=== PATIENT | female | born 1940 | race Caucasian/White ===

== ENCOUNTER 2020-02-21 10:17 | Outpatient (REF) | payer MEDICARE, OTHER, SELFPAY ==
--- NOTE | 2020-02-21 10:22 | US_ITS ---
EXAMINATION: US VENOUS ULTRASOUND WITH DOPPLER LOWER EXTREMITY, RIGHT CLINICAL INFORMATION: M79.89 - Other specified soft tissue disorders. Right lower extremity pain. Assess for occult DVT. COMPARISON: None TECHNIQUE: Ultrasound of the deep veins is performed from the hip to the calf with compression sonography and color and pulse Doppler assessment. Spectral analysis with color-flow imaging is performed. FINDINGS: There is normal venous compression and respiratory variation and augmented flow. The visualized common femoral vein, superficial femoral vein, profunda femoral vein, popliteal vein, and the trifurcation region shows no evidence of deep venous thrombosis. There is a popliteal fossa cyst measuring 1.0 x 2.5 cm axial dimension and extending for 5 cm in length. US/US venous duplex LE RT IMPRESSION: 1. No DVT demonstrated in the right lower extremity. 2. Popliteal fossa cyst 1.0 x 2.5 x 5.0 cm.
== END 2020-02-21 10:18 | disposition home or self-care (01) ==
LOC: HO.HMGCX 10:17
PROVIDERS: PCP Internal Medicine; Visit Provider Hospitalist
DX: M79.89 Other specified soft tissue disorders (principal); M71.21 Synovial cyst of popliteal space [Baker], right knee
CPT/HCPCS: 93971

== ENCOUNTER 2020-03-02 10:19 | Outpatient (REF) | payer MEDICARE, SELFPAY ==
[2020-03-02 15:29] LABS: Alanine Aminotransferase 9 U/L (0-31); Aspartate Amino Transferase 15 U/L (5-31); Cholesterol 208 mg/dL; HDL Cholesterol 48 mg/dL; LDL Cholesterol Calculated 131 mg/dl; Triglycerides 145 mg/dL
== END 2020-03-02 10:20 | disposition home or self-care (01) ==
LOC: HO.HMGCLDS 10:19
PROVIDERS: PCP Internal Medicine; Visit Provider Internal Medicine
DX: E78.5 Hyperlipidemia, unspecified (principal)
CPT/HCPCS: 80061; 84450; 84460

== ENCOUNTER → 2020-03-30 08:32 | Outpatient (BNVA) | payer MEDICARE, SELFPAY | PROVIDERS: PCP Internal Medicine; Visit Provider Physician Assistant | DX: Z76.89 Persons encountering health services in other specified circumstances (principal) | CPT/HCPCS: Q3014 ==

== ENCOUNTER 2020-05-14 10:53 | Day surgery (SDC) | payer MEDICARE, OTHER, SELFPAY ==
[2020-05-08 13:18] VITALS: BMI 25.1
--- NOTE | 2020-05-13 10:03 | P.CONAN_ITS ---
Documented by User: Branid Gerri 05/13/20 10:17 HPI - Anesthesia Eval Consult details Narrative: 80yo F for Upper Endoscopy PMFSH Active Problems Active Problems: All Active Problems (Updated 05/08/20 @ 13:19 by Nessa Chu) Acid reflux (Acute) Menopause (Acute) Tubular adenoma of colon (Acute) Depression (Acute) Osteoarthritis, knee (Acute) Reflux esophagitis (Acute) Zaldivar's esophagus (Acute) Synovial cyst of popliteal space [Machado], right knee (Acute) Dyslipidemia (Acute) Past Medical History Medical History Acid reflux Zaldivar's esophagus COVID-19 vaccine administered Depression Dyslipidemia Menopause Osteoarthritis, knee Reflux esophagitis Synovial cyst of popliteal space [Machado], right knee Tubular adenoma of colon Family History Family History Father Colon cancer Sister Colon cancer Surgical History Surgical History H/O exploratory laparotomy History of esophagogastroduodenoscopy (EGD) Hx of blepharoplasty Hx of colonoscopy Hx of varicose vein ligation Social History Social History Are you a primary health care administrator to a significant other at home: No Do you presently have visiting nurse or other home services: No Alcohol intake: current Alcohol intake frequency: a few times a month Smoking Status: Former smoker Tobacco Type: Cigarette Smoked in Last 30 Days: No Smoking Quit Date: 1955 Use of substances other than those prescribed or required for medical reasons: No Have you been hit, kicked, punched, or otherwise hurt by someone within the past year? If so, by whom?: No Advance Directives Information Provided: No Recently lost weight without trying: No Current occupational status: retired Meds Allergies Allergy/AdvReac Type Severity Reaction Status Date / Time No Known Allergies Allergy Verified 05/08/20 13:22 [No Known Allergies*] Home Medications Medication Instructions Recorded Confirmed Last Taken Type aspirin 81 mg tablet,delayed 81 mg PO DAILY 03/05/20 05/14/20 05/13/20 History release atorvastatin 10 mg tablet 10 mg PO DAILY 03/05/20 05/08/20 Unknown History cholecalciferol (vitamin D3) 25 25 mcg PO DAILY 03/05/20 05/08/20 Unknown History mcg (1,000 unit) capsule diclofenac sodium 1 % topical gel 4 g TOPICAL BID 03/05/20 05/08/20 Unknown History flu vacc (65yr ml IM 03/05/20 Unknown History up)-MF59C(PF) 60 mcg(15 mcgx4)/0.5 mL IM syringe lactobacillus combination no.9 4 4,000 mmu cells PO 3XW 03/05/20 05/08/20 Unknown History billion cell capsule pantoprazole 40 mg tablet,delayed 40 mg PO DAILY 03/05/20 05/08/20 Unknown History release pneumococcal 23-glenn ps vaccine 25 ml IM 03/05/20 Unknown History mcg/0.5 mL injection syringe sertraline 100 mg tablet 100 mg PO QAM 03/05/20 03/30/20 Unknown History sertraline 50 mg PO DAILY 05/08/20 05/08/20 Unknown History Exam Exam Date and Time: May 13, 2020 1003 Height,Weight and Vital Signs: Height 5 ft 6.5 in Weight 71.668 kg Assessment and Plan Assessment Anesthesia Assessment: Chart Reviewed Documented by User: Greta Gimenez 05/14/20 11:49 [facility] Past Medical History Medical History Acid reflux Zaldivar's esophagus COVID-19 vaccine administered Depression Dyslipidemia Menopause Osteoarthritis, knee Reflux esophagitis Synovial cyst of popliteal space [Machado], right knee Tubular adenoma of colon Family History Family History Father Colon cancer Sister Colon cancer Surgical History Surgical History H/O exploratory laparotomy History of esophagogastroduodenoscopy (EGD) Hx of blepharoplasty Hx of colonoscopy Hx of varicose vein ligation Social History Social History Are you a primary health care administrator to a significant other at home: No Do you presently have visiting nurse or other home services: No Alcohol intake: current Alcohol intake frequency: a few times a month Smoking Status: Former smoker Tobacco Type: Cigarette Smoked in Last 30 Days: No Smoking Quit Date: 1955 Use of substances other than those prescribed or required for medical reasons: No Have you been hit, kicked, punched, or otherwise hurt by someone within the past year? If so, by whom?: No Advance Directives Information Provided: No Recently lost weight without trying: No Current occupational status: retired Meds Allergies Allergy/AdvReac Type Severity Reaction Status Date / Time No Known Allergies Allergy Verified 05/08/20 13:22 [No Known Allergies*] Home Medications Medication Instructions Recorded Confirmed Last Taken Type aspirin 81 mg tablet,delayed 81 mg PO DAILY 03/05/20 05/14/20 05/13/20 History release atorvastatin 10 mg tablet 10 mg PO DAILY 03/05/20 05/08/20 Unknown History cholecalciferol (vitamin D3) 25 25 mcg PO DAILY 03/05/20 05/08/20 Unknown History mcg (1,000 unit) capsule diclofenac sodium 1 % topical gel 4 g TOPICAL BID 03/05/20 05/08/20 Unknown History flu vacc 2019-(65yr ml IM 03/05/20 Unknown History up)-MF59C(PF) 60 mcg(15 mcgx4)/0.5 mL IM syringe lactobacillus combination no.9 4 4,000 mmu cells PO 3XW 03/05/20 05/08/20 Unknown History billion cell capsule pantoprazole 40 mg tablet,delayed 40 mg PO DAILY 03/05/20 05/08/20 Unknown History release pneumococcal 23-glenn ps vaccine 25 ml IM 03/05/20 Unknown History mcg/0.5 mL injection syringe sertraline 100 mg tablet 100 mg PO QAM 03/05/20 03/30/20 Unknown History sertraline 50 mg PO DAILY 05/08/20 05/08/20 Unknown History Exam Airway Mallampati Class: II TM Dist: >3cm Neck ROM: Full Heart: RRR Lungs: CTA Assessment and Plan Assessment Anesthesia Assessment: Anesthesia Plan Discussed and Chart Reviewed Final Anesthetic Review NPO: Yes ASA Class: II Final Preanesthetic Review: Meds/Allgs Chart Reviewed, Consent Obtained/Reviewed and Anes Risks/Benef Reviewed Patient Risk: Low Procedure Risk: Intermediate Anesthetic Plan Anesthetic Plan: MAC: Disposition: Standard PACU
[2020-05-14 11:19] VITALS: BP 143/66; PULSE 74; RESP 16; TEMP 36.7; O2SAT 96
[2020-05-14] MEDS: Lactated Ringers 1,000 ML 100 ML IVCONT (11:26)
--- NOTE | 2020-05-14 11:26 | MHC.SHP ---
Pre-Procedural Eval Section B Chief Complaint: barretts,reflux Relevant Family History (Specify if Yes): No Relevant Social History: None Present Medications: see Short Stay Collaborative assessment Medical History: Significant History (Acid reflux Zaldivar's esophagus COVID-19 vaccine administered Depression Dyslipidemia Menopause Osteoarthritis, knee Reflux esophagitis Synovial cyst of popliteal space [Machado], right knee Tubular adenoma of colon) History of Previous Operations: Relevant previous surgery/procedure and date(s) (H/O exploratory laparotomy History of esophagogastroduodenoscopy (EGD) Hx of blepharoplasty Hx of colonoscopy Hx of varicose vein ligation) Allergies: Allergies Allergy/AdvReac Type Severity Reaction Status Date / Time No Known Allergies Allergy Verified 05/08/20 13:22 [No Known Allergies*] Review of Systems Sugical H&P ROS: Negative: Constitution, Cardiovascular, Respiratory, Neurological, Psychiatric, Hem-Onc, Allergic/Immunologic, Gastrointestinal, Genitourinary, Musculoskeletal, Integumentary, Endocrine and Eyes/Ears/Nose/Throat Exam Surgical H&P Exam: Normal: HEENT, Normal: Heart, Normal: Lungs, Normal: Extremities, Normal: Abdomen, Normal: Skin and Normal: Neurological Plan Diagnosis/Plan: Unchanged I have reviewed the history and physical and performed a pertinent physical examination on my patient. No changes have occurred unless specified.
--- NOTE | 2020-05-14 11:56 | PM.OP ---
Brief Operative Note Date of Service: 05/14/20 Pre-op diagnosis: hx of barretts Post-op diagnosis: same Procedure: see op note Surgeon: Brook Weldon MD Anesthesia: MAC Estimated blood loss (mL): 0 Condition: stable Disposition: PACU
--- NOTE | 2020-05-14 11:57 | W.PM.OPN ---
Operative Note Operative Note Date of Service: 05/14/20 Narrative: Procedure Description: EGD FLEXIBLE TRANSORAL UPPER GASTROINTESTINAL ENDOSCOPY UPPER ENDOSCOPY Consent: Indications for the procedure and potential complications of bleeding, perforation, reaction to medications and missed diagnosis were discussed with the patient and informed consent was obtained. Instrument: Olympus GIF H 190 J mid size upper endoscope Monitoring: Vital signs and clinical assessment, continuous EKG monitoring, Pulse oximetry, Carbon Dioxide monitoring and blood pressure monitoring were done throughout the procedure. Procedure: The patient was placed in the left lateral decubitis position and pre-procedure medications were administered and a bite block was placed. The endoscope was inserted into the mouth and advanced under direct vision to the third part of duodenum. A careful inspection was made as the upper endoscope was withdrawn including a retroflexed examination of the proximal stomach; Findings and interventions are described below. Findings: Larynx:normal Esophagus: GE junction at 38 cm, diaphragm hiatus at 40 cm, mild esophagitis, irregular Z line, possibly consistent with short segment barretts, bx taken but she was oozing a lot (prob from aspirin and sertraline use so 3 clips applied to bx sites. There is a 2 cm sliding hiatal hernia with patulous LES Stomach: Normal mucosa, few fundic gland polyps noted. Grade 2 flap valve on retroflexed examination of the cardia. Duodenum: Normal bulb and descending duodenum. Intervention: Biopsies as noted above Impression/Findings: esophagitis hiatal hernia irregular Z line PLAN: cont with PPI as doing, can consider adding famotidine at night, will d/w patient reflux precautions
[2020-05-14 12:00] VITALS: BP 87/45; PULSE 69; RESP 18; TEMP 36.4; O2SAT 97
[2020-05-14 12:15] VITALS: BP 119/59; PULSE 71; RESP 18; O2SAT 95
[2020-05-14 12:25] VITALS: BP 119/59; PULSE 71; RESP 18; O2SAT 99
== END 2020-05-14 13:19 | disposition home or self-care (01) ==
PROVIDERS: PCP Internal Medicine; Visit Provider Internal Medicine Gastroenterology
PROC: 0DJ08ZZ Inspection of Upper Intestinal Tract, Via Natural or Artificial Opening Endoscopic (ICD-10-PCS; CPT 43235; principal; 2020-05-14 12:20)
DX: K21.00 Gastro-esophageal reflux disease with esophagitis, without bleeding (principal); K22.70 Barrett's esophagus without dysplasia; K44.9 Diaphragmatic hernia without obstruction or gangrene; K31.7 Polyp of stomach and duodenum; Z79.899 Other long term (current) drug therapy
CPT/HCPCS: 43239; 88305

== ENCOUNTER → 2020-05-21 08:50 | Outpatient (BNVA) | payer MEDICARE, OTHER, SELFPAY | PROVIDERS: PCP Internal Medicine; Visit Provider Physician Assistant | DX: K21.9 Gastro-esophageal reflux disease without esophagitis (principal); K22.70 Barrett's esophagus without dysplasia | CPT/HCPCS: Q3014 ==

== ENCOUNTER 2020-06-15 07:04 | Outpatient (REF) | payer MEDICARE, OTHER, SELFPAY ==
[2020-06-15 11:32] LABS: Alanine Aminotransferase 10 U/L (0-31); Aspartate Amino Transferase 15 U/L (5-31); Cholesterol 168 mg/dL; HDL Cholesterol 44 mg/dL; LDL Cholesterol Calculated 91 mg/dl; Triglycerides 169 mg/dL
[2020-06-15 11:53] LABS: Vitamin D 25-OH Total 27.8 ng/mL (>30)
== END 2020-06-15 07:05 | disposition home or self-care (01) ==
LOC: HO.HMGCLDS 07:04
PROVIDERS: PCP Internal Medicine; Visit Provider Internal Medicine
DX: E78.5 Hyperlipidemia, unspecified (principal); Z78.0 Asymptomatic menopausal state
CPT/HCPCS: 36415; 80061; 82306; 84450; 84460

== ENCOUNTER 2020-12-22 07:04 | Outpatient (REF) | payer MEDICARE, OTHER, SELFPAY ==
[2020-12-22 11:52] LABS: MANUAL DIFF FLAG NO
[2020-12-22 12:00] LABS: Basophils Absolute Auto 0.1 X10*3/uL (0.0-0.2); Basophils Percent Auto 0.7 % (0-2); Eosinophils Absolute Auto 0.4 X10*3/uL (0.0-0.4); Eosinophils Percent Auto 4.6 % (0-4); Hematocrit 42.5 % (37-47); Hemoglobin 13.6 g/dl (12.0-16.0); Imm Gran Abs Auto 0.03 X10*3/uL (0.00-0.03); Imm Gran Pct Auto 0.4 % (0.0-0.4); Lymphocytes Absolute Auto 2.1 X10*3/uL (1.2-4.9); Lymphocytes Percent Auto 25.2 % (20-40); Mean Corpuscular Hemoglobin 30.3 pg (27.0-33.0); Mean Corpuscular Volume 94.7 fL (80-98); Mean Platelet Volume 12.1 fL (9.4-12.3); Monocytes Absolute Auto 0.6 X10*3/uL (0.1-1.2); Monocytes Percent Auto 7.8 % (2-11); Neutrophils Percent Auto 61.3 % (45-73); Platelet Count 259 X10*3/uL (160-400); Red Blood Count 4.49 X10*6/uL (4.20-5.50); Red Cell Distribution Width 13.8 % (11.0-16.0); White Blood Count 8.2 X10*3/uL (4.8-10.8)
[2020-12-22 12:21] LABS: Alanine Aminotransferase 9 U/L (0-31); Aspartate Amino Transferase 14 U/L (5-31); Cholesterol 179 mg/dL; Glucose Fasting 96 mg/dL (60-99); HDL Cholesterol 46 mg/dL; LDL Cholesterol Calculated 112 mg/dl; Triglycerides 107 mg/dL
[2020-12-22 12:43] LABS: Vitamin D 25-OH Total 46.2 ng/mL (>30)
== END 2020-12-22 07:05 | disposition home or self-care (01) ==
LOC: HO.HMGCLDS 07:04
PROVIDERS: PCP Internal Medicine; Visit Provider Internal Medicine
DX: D12.6 Benign neoplasm of colon, unspecified (principal); E78.5 Hyperlipidemia, unspecified; K21.00 Gastro-esophageal reflux disease with esophagitis, without bleeding; K22.70 Barrett's esophagus without dysplasia
CPT/HCPCS: 36415; 80061; 82306; 82947; 84450; 84460; 85025

== ENCOUNTER 2021-02-16 09:02 | Outpatient (REF) | payer MEDICARE, OTHER, SELFPAY | END 2021-02-16 09:03 | disposition home or self-care (01) | LOC: HO.HMGCLDS 09:02 | PROVIDERS: Visit Provider Internal Medicine | DX: Z20.822 Contact with and (suspected) exposure to COVID-19 (principal) | CPT/HCPCS: C9803; U0003; U0005 ==

== ENCOUNTER 2021-06-21 07:18 | Outpatient (REF) | payer MEDICARE, OTHER, SELFPAY ==
[2021-06-21 12:06] LABS: MANUAL DIFF FLAG NO
[2021-06-21 12:11] LABS: Basophils Percent Auto 0.5 % (0-2); Eosinophils Absolute Auto 0.3 X10*3/uL (0.0-0.4); Hematocrit 42.7 % (37.0-47.0); Hemoglobin 13.6 g/dl (12.0-16.0); Imm Gran Abs Auto 0.03 X10*3/uL (0.00-0.03); Imm Gran Pct Auto 0.4 % (0.0-0.4); Lymphocytes Absolute Auto 2.1 X10*3/uL (1.2-4.9); Lymphocytes Percent Auto 27.7 % (20-40); Mean Corpuscular HGB Conc 31.9 g/dl (31.0-35.0); Mean Corpuscular Hemoglobin 30.1 pg (27.0-33.0); Mean Corpuscular Volume 94.5 fL (80.0-98.0); Mean Platelet Volume 12.2 fL (9.4-12.3); Monocytes Absolute Auto 0.7 X10*3/uL (0.1-1.2); Monocytes Percent Auto 9.2 % (2-11); Neutrophils Absolute Auto 4.4 x10*3/uL (2.0-8.3); Neutrophils Percent Auto 58.2 % (45-73); Platelet Count 246 X10*3/uL (160-400); Red Blood Count 4.52 X10*6/uL (4.20-5.50); White Blood Count 7.5 X10*3/uL (4.8-10.8)
[2021-06-21 12:29] LABS: Alanine Aminotransferase 10 U/L (0-31); Anion Gap 13 (12-20); Aspartate Amino Transferase 14 U/L (5-31); Blood Urea Nitrogen 19 mg/dL (9-16); Calcium 9.5 mg/dL (8.4-10.2); Carbon Dioxide 26 mmol/L (22-29); Chloride 105 mmol/L (96-108); Cholesterol 174 mg/dL; Estimated Glomerular Filt Rate 58; Glucose Fasting 100 mg/dL (60-99); HDL Cholesterol 42 mg/dL; LDL Cholesterol Calculated 100 mg/dl; Potassium 4.8 mmol/L (3.3-5.1); Sodium 139 mmol/L (135-145); Triglycerides 161 mg/dL
[2021-06-21 12:52] LABS: Vitamin D 25-OH Total 33.4 ng/mL (>30)
== END 2021-06-21 07:19 | disposition home or self-care (01) ==
LOC: HO.HMGCLDS 07:18
PROVIDERS: Visit Provider Internal Medicine
DX: E78.5 Hyperlipidemia, unspecified (principal); K22.70 Barrett's esophagus without dysplasia; I10 Essential (primary) hypertension; Z78.0 Asymptomatic menopausal state
CPT/HCPCS: 36415; 80048; 80061; 82306; 84450; 84460; 85025

== ENCOUNTER 2021-07-09 10:17 | Outpatient (REF) | payer MEDICARE, OTHER, SELFPAY ==
[2021-07-09 10:38] LABS: Binax Internal Control QC Valid; Binax Now Covid-19 Ag Negative (Negative)
== END 2021-07-09 10:18 | disposition home or self-care (01) ==
LOC: HO.HMGCLDS 10:17
PROVIDERS: Visit Provider Hospitalist
DX: Z13.89 Encounter for screening for other disorder (principal)

== ENCOUNTER 2021-07-10 09:58 | Emergency (ER) | payer MEDICARE, OTHER, SELFPAY ==
--- NOTE | ~2021-07-10 | XR_ITS ---
EXAMINATION: XR CHEST CLINICAL INFORMATION: Cough. COMPARISON: None available for comparison. TECHNIQUE: 2 views of the chest were obtained. FINDINGS: Biapical pleuroparenchymal opacities are noted, may represent chronic changes. No evidence of any dense airspace consolidation. Asymmetric right perihilar soft tissue fullness, may represent prominent vessels versus mass. The cardiac mediastinal silhouette is within normal limit. No evidence of any pleural effusion or pneumothorax. Mild multilevel degenerative spondylosis. Mild diffuse osteopenia. XR/XR chest 2V IMPRESSION: 1. Biapical pleural-parenchymal opacity and asymmetric right perihilar soft tissue fullness. 2. No evidence of any dense airspace consolidation.
[2021-07-10 10:02] VITALS: BP 153/71; PULSE 95; RESP 20; TEMP 36.9; O2SAT 94; BMI 25.4
--- NOTE | 2021-07-10 10:39 | ED.URI ---
HPI - URI/Sore Throat General Chief Complaint: Upper Respiratory Symptoms Stated Complaint: SOB/Congestion/Sore throat Time Seen by Provider: 07/10/21 10:35 Source: patient Mode of arrival: ambulatory Limitations: no limitations History of Present Illness HPI Narrative: this is an 81 years old female brought in he goes cough or congestion x3 days then having any fever chills vomiting. She has no comorbidity. MD elicited complaint: cough Onset (ago): day(s) (3) Consistency: constant Severity: moderate Description of mucous: clear Exacerbating factors: nothing Relieving factors: nothing Related Data Home Medications Medication Instructions Recorded Confirmed cholecalciferol (vitamin D3) 25 25 mcg PO DAILY 03/05/20 07/09/21 mcg (1,000 unit) capsule flu vacc 2020-21(65yr ml IM 03/05/20 07/09/21 up)-MF59C(PF) 60 mcg(15 mcgx4)/0.5 mL IM syringe pneumococcal 23-glenn ps vaccine 25 ml IM 03/05/20 07/09/21 mcg/0.5 mL injection syringe sertraline 50 mg tablet 50 mg PO DAILY 05/08/20 07/09/21 Previous Rx's Medication Instructions Recorded famotidine 40 mg tablet 40 mg PO BEDTIME #60 tab 05/14/20 diclofenac sodium 1 % topical gel 4 g TOPICAL BID PRN #100 g 06/17/20 atorvastatin 10 mg tablet 10 mg PO DAILY #90 tab 02/02/21 pantoprazole 40 mg tablet,delayed 40 mg PO DAILY 90 Days #90 tab 05/04/21 release albuterol sulfate 90 mcg/actuation 2 puff INHALATION Q4H PRN #8.5 g 07/09/21 aerosol inhaler (ProAir HFA) doxycycline monohydrate 100 mg 100 mg PO BID #14 cap 07/10/21 capsule Allergies Allergy/AdvReac Type Severity Reaction Status Date / Time No Known Allergies Allergy Verified 07/09/21 09:54 [No Known Allergies*] Review of Systems Review of Systems: Yes all other systems are reviewed and are negative Constitutional: Constitutional: Reports no additional constitutional complaints Cardiovascular: Cardiovascular: Reports no additional cardiovascular complaints Respiratory: Respiratory: Reports no additional respiratory complaints Gastrointestinal: Gastrointestinal: Reports no additional gastrointestinal complaints PMFSH Past Medical History Medical History Acid reflux Zaldivar's esophagus COVID-19 vaccine administered Depression Dyslipidemia Menopause Osteoarthritis, knee Reflux esophagitis Synovial cyst of popliteal space [Machado], right knee Tubular adenoma of colon Surgical History H/O exploratory laparotomy History of esophagogastroduodenoscopy (EGD) Hx of blepharoplasty Hx of colonoscopy Hx of varicose vein ligation Family History Family History Father Colon cancer Sister Colon cancer Social History Social History Household Members: None Household Members Other:: Housing: Condominium Are you a primary child care supervisor to a significant other at home: No Do you presently have visiting nurse or other home services: No Alcohol intake: current Alcohol intake frequency: a few times a month Alcohol type: wine Patient Tobacco Use Status: Former Tobacco user e-Cigarette/Vaping Use: Never Used Advance Directives: Yes Advance Directives on File: Yes Advance Directives Date on File: 12/24/20 Current occupational status: retired Cognitive needs: No Hearing needs: No Vision needs: No Physical Exam Vital Signs: Vital Signs: Last Vital Signs Temp 98.5 F 07/10/21 10:02 Pulse 95 07/10/21 10:02 Resp 20 07/10/21 10:02 BP 153/71 H 07/10/21 10:02 Pulse Ox 94 07/10/21 10:02 BMI result Body Mass Index 25.4 Const: General: cooperative, comfortable, no acute distress and well developed Nutritional Appearance: average body habitus Orientation/consciousness: patient oriented x3 HEENT: Head: Yes normal to inspection General nose exam: Normal external nose present Face and sinus: Yes normal facial exam Mouth: Normal oral and palatal mucosa present Neck: Neck: Yes normal visual inspection and Yes full ROM Chest: Chest palpation & inspection: normal inspection of the chest Resp: Effort & Inspection: normal respiratory effort Auscultation: rhonchi Cardio: Jugular venous distension: no JVD Rate: regular rate GI: Inspection: Yes normal to inspection Percussion: Yes normal to percussion Auscultation: normal bowel sounds Skin: General skin exam: no rashes or lesions noted Neuro: General: patient oriented x3 Course Reevaluation(s) Reevaluation #1: reexamined the patient this time she has no in distress she is not tachypneic RR is 20 O2 sat is 94% she can be discharged home HS chest x-ray shows basilar parenchymal opacity a no dre pneumonia, may be chronic per radiologist MDM - URI/Sore Throat Lab Data Labs: Lab Results 07/10/21 Range/Units 10:51 Influenza Type A (PCR) NEGATIVE (Negative) Influenza Type B (PCR) NEGATIVE (Negative) RSV RNA Qual (PCR) NEGATIVE (Negative) SARS-CoV-2 RNA (RT-PCR) NEGATIVE (Negative) Imaging Data Chest x-ray: Radiologist's impression: TECHNIQUE: 2 views of the chest were obtained. FINDINGS: Biapical pleuroparenchymal opacities are noted, may represent chronic changes. No evidence of any dense airspace consolidation. Asymmetric right perihilar soft tissue fullness, may represent prominent vessels versus mass. The cardiac mediastinal silhouette is within normal limit. No evidence of any pleural effusion or pneumothorax. Mild multilevel degenerative spondylosis. Mild diffuse osteopenia. XR/XR chest 2V IMPRESSION: ? 1. Biapical pleural-parenchymal opacity and asymmetric right perihilar soft tissue fullness. 2. No evidence of any dense airspace consolidation. Dictated By: Belle Rankin MD Signed By: <Electronically signed by Belle Rankin MD in OV> 07/10/21 1119 DD/ 1050 TD/TT:? Security Operations Analyst: PK Discharge Plan Discharge Clinical Impression: Pneumonitis Patient Disposition: Home, Self-Care Instructions: Bacterial Pneumonia (DC) Prescriptions: New doxycycline monohydrate 100 mg capsule 100 mg PO BID Qty: 14 0RF No Action atorvastatin 10 mg tablet 10 mg PO DAILY Qty: 90 1RF pantoprazole 40 mg tablet,delayed release (DR/EC) 40 mg PO DAILY 90 Days Qty: 90 0RF albuterol sulfate [ProAir HFA] 90 mcg/actuation HFA aerosol inhaler 2 puff inhalation Q4H PRN (Reason: shortness of breath or wheezing) Qty: 8.5 0RF sertraline 50 mg Tablet 50 mg PO DAILY 0RF famotidine 40 mg tablet 40 mg PO BEDTIME Qty: 60 3RF Fluad Quad 2020-21(65y up)(PF) 60 mcg (15 mcg x 4)/0.5 mL syringe IM 0RF Pneumovax-23 25 mcg/0.5 mL syringe IM 0RF cholecalciferol (vitamin D3) 25 mcg (1,000 unit) capsule 25 mcg PO DAILY 0RF diclofenac sodium 1 % gel 4 g topical BID PRN (Reason: joint pain) Qty: 100 0RF Interventions: ED Discharge Assessment Last Done: 07/10/21 12:40 Discharge Date/Time: 07/10/21 12:41
[2021-07-10 11:36] LABS: Influenza A PCR NEGATIVE (Negative); Influenza B PCR NEGATIVE (Negative); Resp Syncy Virus RNA Qual PCR NEGATIVE (Negative); SARS COV2 PCR INHOUSE NEGATIVE (Negative)
== END 2021-07-10 12:41 | disposition home or self-care (01) ==
PROVIDERS: Emergency Provider Emergency Medicine; PCP Internal Medicine
DX: J18.9 Pneumonia, unspecified organism (principal); R05.9 Cough, unspecified; R06.02 Shortness of breath; Z20.822 Contact with and (suspected) exposure to COVID-19; Z79.899 Other long term (current) drug therapy; Z87.891 Personal history of nicotine dependence
CPT/HCPCS: 0241U; 71046; 99283

== ENCOUNTER 2021-07-26 08:34 | Outpatient (REF) | payer MEDICARE, OTHER, SELFPAY ==
--- NOTE | ~2021-07-26 | XR_ITS ---
EXAMINATION: XR CHEST CLINICAL INFORMATION: Abnormal chest radiograph, for follow-up. COMPARISON: Chest done on 07/10/2021. TECHNIQUE: 2 views of the chest were obtained. FINDINGS: Persistent stable asymmetric right perihilar soft tissue fullness is present. Biapical pleuroparenchymal opacities appear unchanged. The remainder of the lung reich appear clear. No new abnormalities. The heart size is within normal limits. No evidence of any pleural effusion Visualized upper is unremarkable. Mild multilevel degenerative spondylosis is present. Overall no change. XR/XR chest 2V IMPRESSION: Persistent stable asymmetric right perihilar soft tissue fullness, and stable presumed pleuroparenchymal scar at both lung apices unchanged since 07/10/2021.
== END 2021-07-26 08:35 | disposition home or self-care (01) ==
LOC: HO.HMGCX 08:34
PROVIDERS: PCP Internal Medicine; Visit Provider Internal Medicine
DX: R93.89 Abnormal findings on diagnostic imaging of other specified body structures (principal)
CPT/HCPCS: 71046

== ENCOUNTER 2021-12-16 10:57 | Outpatient (REF) | payer MEDICARE, OTHER, SELFPAY ==
[2021-12-17 11:13] LABS: Campylobacter Not Detected (Not Detect.); E. coli EAEC Not Detected (Not Detect.); E. coli EPEC Not Detected (Not Detect.); E. coli ETEC Not Detected (Not Detect.); E. coli STEC Not Detected (Not Detect.); Plesiomonas shigelloides Not Detected (Not Detect.); Salmonella Not Detected (Not Detect.); Vibrio Not Detected (Not Detect.); Vibrio Cholerae Not Detected (Not Detect.); Yersinia enterocolitica Not Detected (Not Detect.)
[2021-12-17 11:14] LABS: Adenovirus F 40/41 Not Detected (Not Detect.); Astrovirus Not Detected (Not Detect.); Cryptosporidium Not Detected (Not Detect.); Cyclospora cayetanensis Not Detected (Not Detect.); Entamoeba histolytica Not Detected (Not Detect.); Giardia lamblia Not Detected (Not Detect.); Norovirus GI/GII Not Detected (Not Detect.); Rotavirus A Not Detected (Not Detect.); Sapovirus Not Detected (Not Detect.); Shigella sp./EIEC Not Detected (Not Detect.)
== END 2021-12-16 10:58 | disposition home or self-care (01) ==
LOC: HO.HMGCLDS 10:57
PROVIDERS: PCP Internal Medicine; Visit Provider Nurse Practitioner Family
DX: R19.7 Diarrhea, unspecified (principal)
CPT/HCPCS: 87507

== ENCOUNTER → 2022-01-06 11:14 | Outpatient (BNVA) | payer MEDICARE, OTHER, SELFPAY | PROVIDERS: PCP Internal Medicine; Visit Provider Physician Assistant | DX: Z01.818 Encounter for other preprocedural examination (principal); K22.70 Barrett's esophagus without dysplasia; D12.6 Benign neoplasm of colon, unspecified | CPT/HCPCS: 99212 ==

== ENCOUNTER 2022-01-07 08:49 | Outpatient (REF) | payer MEDICARE, OTHER, SELFPAY ==
--- NOTE | ~2022-01-07 | MM_ITS ---
EXAMINATION: BONE DENSITOMETRY CLINICAL INDICATION: Menopause. COMPARISON: Previous BD dated 07/17/2015 and baseline BD dated 03/25/2005. TECHNIQUE: Using a [employer] DXA System (software version: 13.1) manufactured by [employer], dual-energy x-ray absorptiometry was performed of the lumbar spine and left hip. The images are of good technical quality. Summary results are attached. FINDINGS: AP SPINE L1-L4: Current: BMD 1.239 g/cm2, Z-score 2.1, T-score 0.5, normal, 7.6% increase from previous, 13.9% increase from baseline (<5% change is not significant). Prior: BMD 1.152 g/cm2. Baseline: BMD 1.088 g/cm2. LEFT FEMUR, NECK: Current: BMD 0.953 g/cm2, Z-score 1.5, T-score -0.6, normal. Prior: BMD 0.962 g/cm2. Baseline: BMD 0.995 g/cm2. LEFT FEMUR, TOTAL: Current: BMD 0.976 g/cm2, Z-score 1.7, T-score -0.3, normal, 0.6% decrease from previous, 4.8% decrease from baseline (<5% change is not significant). Prior: BMD 0.982 g/cm2. Baseline: BMD 1.025 g/cm2. IDENTIFIED RISK FACTORS: Menopause, family history (parent hip fracture). HISTORY OF FRACTURE: None listed. MEDICATIONS: Calcium, vitamin D. MM/XR DEXA axial skeleton IMPRESSION: 1. DIAGNOSIS: Normal bone density based on the lowest T-score value of -0.6 in the femoral neck applying World Health Organization criteria. 2. 10-YEAR FRACTURE RISK PREDICTION, FRAX: According to the guidelines, FRAX calculation should only be performed on patients in the osteopenia bone density category. Therefore, FRAX was not performed on this patient. 3. Treatment Recommendations: NOF guidelines recommend consideration for treatment in postmenopausal women and men age 50 and older presenting with the following: -A hip or vertebral (clinical or morphometric) fracture. -T-score less than or equal to -2.5 at the femoral neck or spine after appropriate evaluation to exclude secondary causes. -Low bone mass at the hip or spine and a 10-year fracture probability by FRAX of greater than or equal to 3% for hip fracture or greater than or equal to 20% for major osteoporotic fracture based on the [place] adapted WHO algorithm. 4. Other Recommendations: All treatment decisions require clinical judgment and consideration of individual patient factors, including patient preferences, comorbidities, previous drug use, risk factors not captured in the FRAX model (e.g. frailty, falls, vitamin D deficiency, increased bone turnover, interval significant decline in bone density) and possible under or overestimation of fracture risk by FRAX. FUTURE SCAN RECOMMENDATION: People with diagnosed cases of osteoporosis or at high risk for fracture should have regular bone mineral density tests. For patients eligible for Medicare, routine testing is allowed once every 2 years. The testing frequency can be increased to one year for patients who have rapidly progressing disease, those who are receiving or discontinuing medical therapy to restore bone mass, or have additional risk factors.
--- NOTE | ~2022-01-07 | MM_ITS ---
EXAMINATION: MM SCREENING DIGITAL BREAST TOMOSYNTHESIS, BILATERAL CLINICAL INFORMATION: Screening. Asymptomatic. The lifetime risk of breast cancer based on the Tyrer-Cuzick Model is 1%. COMPARISON: Mammography: September 11, 2019 and studies dating back to July 17, 2015 TECHNIQUE: Digital breast tomosynthesis is performed in both the craniocaudal and mediolateral oblique views along with computer-aided detection (CAD). Synthesized 2D images are generated from the tomosynthesis. FINDINGS: There are scattered areas of fibroglandular density (ACR BI-RADS breast composition Category b). There are no significant masses, abnormal calcifications, or other abnormalities. MM/MM tomosynthesis screening BI IMPRESSION: No significant changes from prior exam. ASSESSMENT: BI-RADS 1: Negative RECOMMENDATION: Routine annual mammography screening. This patient's information was entered into a reminder system with a target due date for their next mammogram.
== END 2022-01-07 08:50 | disposition home or self-care (01) ==
LOC: HO.MAMMO 08:49
PROVIDERS: PCP Internal Medicine; Visit Provider Internal Medicine
DX: Z12.31 Encounter for screening mammogram for malignant neoplasm of breast (principal); Z13.820 Encounter for screening for osteoporosis; N95.9 Unspecified menopausal and perimenopausal disorder
CPT/HCPCS: 77063; 77067; 77080

== ENCOUNTER 2022-07-07 07:52 | Outpatient (REF) | payer MEDICARE, OTHER, SELFPAY ==
[2022-07-07 11:09] LABS: MANUAL DIFF FLAG NO
[2022-07-07 11:25] LABS: Basophils Absolute Auto 0.1 X10*3/uL (0.0-0.2); Eosinophils Absolute Auto 0.4 X10*3/uL (0.0-0.4); Eosinophils Percent Auto 5.6 % (0-4); Hematocrit 40.5 % (37.0-47.0); Imm Gran Abs Auto 0.02 X10*3/uL (0.00-0.03); Imm Gran Pct Auto 0.3 % (0.0-0.4); Lymphocytes Absolute Auto 1.7 X10*3/uL (1.2-4.9); Lymphocytes Percent Auto 24.3 % (20-40); Mean Corpuscular HGB Conc 32.1 g/dl (31.0-35.0); Mean Corpuscular Hemoglobin 29.9 pg (27.0-33.0); Mean Corpuscular Volume 93.1 fL (80.0-98.0); Monocytes Absolute Auto 0.6 X10*3/uL (0.1-1.2); Monocytes Percent Auto 8.4 % (2-11); Neutrophils Absolute Auto 4.3 x10*3/uL (2.0-8.3); Neutrophils Percent Auto 60.4 % (45-73); Platelet Count 242 X10*3/uL (160-400); Red Blood Count 4.35 X10*6/uL (4.20-5.50); Red Cell Distribution Width 14.2 % (11.0-16.0); White Blood Count 7.2 X10*3/uL (4.8-10.8)
[2022-07-07 11:59] LABS: Alanine Aminotransferase 9 U/L (0-31); Aspartate Amino Transferase 15 U/L (5-31); Cholesterol 213 mg/dL; Glucose Fasting 93 mg/dL (60-99); HDL Cholesterol 42 mg/dL; LDL Cholesterol Calculated 142 mg/dl; Triglycerides 145 mg/dL
[2022-07-07 12:02] LABS: Vitamin D 25-OH Total 80.6 ng/mL (>30)
== END 2022-07-07 07:53 | disposition home or self-care (01) ==
LOC: HO.HMGCLDS 07:52
PROVIDERS: PCP Internal Medicine; Visit Provider Internal Medicine
DX: D12.6 Benign neoplasm of colon, unspecified (principal); E78.5 Hyperlipidemia, unspecified; K21.00 Gastro-esophageal reflux disease with esophagitis, without bleeding; K22.70 Barrett's esophagus without dysplasia; Z78.0 Asymptomatic menopausal state
CPT/HCPCS: 36415; 80061; 82306; 82947; 84450; 84460; 85025

== ENCOUNTER 2022-07-20 11:27 | Day surgery (SDC) | payer MEDICARE, OTHER, SELFPAY ==
[2022-07-18 10:17] VITALS: BMI 25.4
--- NOTE | 2022-07-19 09:09 | HO.ANESPROP2 ---
Documented by User: Brandi Talley NP 07/19/22 09:09 HPI - Anesthesia Eval Consult details Narrative: 82yo F for Upper Endoscopy w/ singh and Colonoscopy PMFSH Active Problems Active Problems: All Active Problems (Updated 01/11/22 @ 12:08 by Elina Benavides PA-C) Exposure to COVID-19 virus (Acute) URI (upper respiratory infection) (Acute) Acid reflux (Acute) Menopause (Acute) Tubular adenoma of colon (Acute) Depression (Acute) Osteoarthritis, knee (Acute) Reflux esophagitis (Acute) Zaldivar's esophagus (Acute) Dyslipidemia (Acute) Past Medical History Medical History Acid reflux Zaldivar's esophagus COVID-19 vaccine administered Depression Dyslipidemia Menopause Osteoarthritis, knee Reflux esophagitis Synovial cyst of popliteal space [Machado], right knee Tubular adenoma of colon Family History Family History Father Colon cancer Sister Colon cancer Surgical History Surgical History H/O exploratory laparotomy History of esophagogastroduodenoscopy (EGD) Hx of blepharoplasty Hx of colonoscopy Hx of varicose vein ligation Social History Social History Household Members: None Household Members Other:: Housing: Condominium Are you a primary director of healthcare systems to a significant other at home: No Do you presently have visiting nurse or other home services: No Alcohol intake: current Alcohol intake frequency: a few times a week Alcohol type: wine Patient Tobacco Use Status: Former Tobacco user e-Cigarette/Vaping Use: Never Used Use of substances other than those prescribed or required for medical reasons: No Have you been hit, kicked, punched, or otherwise hurt by someone within the past year? If so, by whom?: No Advance Directives: Yes Advance Directives Information Provided: No Advance Directives on File: Yes Advance Directives Date on File: 12/24/20 Recently lost weight without trying: No Eating poorly because of decreased appetite: No Nutrition Risks: No Nutritional Risk Patient : No : No Poor oral hygiene: Yes (upper right crown) Current occupational status: retired Cognitive needs: No Hearing needs: No Vision needs: No Meds Allergies Allergy/AdvReac Type Severity Reaction Status Date / Time No Known Allergies Allergy Verified 07/20/22 11:30 [No Known Allergies*] Home Medications Medication Instructions Recorded Confirmed Last Taken Type cholecalciferol (vitamin D3) 25 25 mcg PO DAILY 03/05/20 07/18/22 Unknown History mcg (1,000 unit) capsule acetaminophen 650 mg 650 mg PO Q12H 06/20/22 07/18/22 Unknown History tablet,extended release (Tylenol 8 Hour) sertraline 50 mg tablet 100 mg PO BEDTIME 06/20/22 07/18/22 Unknown History Exam Exam Date and Time: July 19, 2022 09 Height,Weight and Vital Signs: Height 5 ft 6 in Weight 71.668 kg Assessment and Plan Assessment Anesthesia Assessment: Chart Reviewed Documented by User: Crystal Lutz MD 07/20/22 11:42 [facility] Past Medical History Medical History Acid reflux Zaldivar's esophagus COVID-19 vaccine administered Depression Dyslipidemia Menopause Osteoarthritis, knee Reflux esophagitis Synovial cyst of popliteal space [Machado], right knee Tubular adenoma of colon Family History Family History Father Colon cancer Sister Colon cancer Family history of problems with anesthesia: No Surgical History Surgical History H/O exploratory laparotomy History of esophagogastroduodenoscopy (EGD) Hx of blepharoplasty Hx of colonoscopy Hx of varicose vein ligation History of Problems with Anesthesia: No Social History Social History Household Members: None Household Members Other:: Housing: Condominium Are you a primary director of healthcare systems to a significant other at home: No Do you presently have visiting nurse or other home services: No Alcohol intake: current Alcohol intake frequency: a few times a week Alcohol type: wine Patient Tobacco Use Status: Former Tobacco user e-Cigarette/Vaping Use: Never Used Use of substances other than those prescribed or required for medical reasons: No Have you been hit, kicked, punched, or otherwise hurt by someone within the past year? If so, by whom?: No Advance Directives: Yes Advance Directives Information Provided: No Advance Directives on File: Yes Advance Directives Date on File: 12/24/20 Recently lost weight without trying: No Eating poorly because of decreased appetite: No Nutrition Risks: No Nutritional Risk Patient : No : No Poor oral hygiene: Yes (upper right crown) Current occupational status: retired Cognitive needs: No Hearing needs: No Vision needs: No Meds Allergies Allergy/AdvReac Type Severity Reaction Status Date / Time No Known Allergies Allergy Verified 07/20/22 11:30 [No Known Allergies*] Home Medications Medication Instructions Recorded Confirmed Last Taken Type cholecalciferol (vitamin D3) 25 25 mcg PO DAILY 03/05/20 07/18/22 Unknown History mcg (1,000 unit) capsule acetaminophen 650 mg 650 mg PO Q12H 06/20/22 07/18/22 Unknown History tablet,extended release (Tylenol 8 Hour) sertraline 50 mg tablet 100 mg PO BEDTIME 06/20/22 07/18/22 Unknown History Exam Airway Mallampati Class: II (cap bottom right) TM Dist: >3cm Neck ROM: Full Heart: rrr Lungs: cta Assessment and Plan Assessment Anesthesia Assessment: Anesthesia Plan Discussed Final Anesthetic Review Family History of Problems with Anesthesia: No History of Problems with Anesthesia: No NPO: Yes ASA Class: II Final Preanesthetic Review: No Changes in Pt Med Stat, Meds/Allgs Chart Reviewed and Consent Obtained/Reviewed Patient Risk: Intermediate Procedure Risk: Intermediate Anesthetic Plan Anesthetic Plan: MAC: Disposition: Standard PACU
--- NOTE | 2022-07-20 11:35 | P.HPSUR_ITS ---
Pre-Procedural Eval Section A Date of Service: 07/20/22 Section B Chief Complaint: Benign neoplasm of colon,Barretts Relevant Family History (Specify if Yes): No Relevant Social History: None Present Medications: see Short Stay Collaborative assessment Medical History: Significant History (Acid reflux Zaldivar's esophagus COVID-19 vaccine administered Depression Dyslipidemia Menopause Osteoarthritis, knee Reflux esophagitis Synovial cyst of popliteal space [Machado], right knee Tubular adenoma of colon) History of Previous Operations: Relevant previous surgery/procedure and date(s) (H/O exploratory laparotomy History of esophagogastroduodenoscopy (EGD) Hx of blepharoplasty Hx of colonoscopy Hx of varicose vein ligation) Allergies: Allergies Allergy/AdvReac Type Severity Reaction Status Date / Time No Known Allergies Allergy Verified 07/20/22 11:30 [No Known Allergies*] Review of Systems Sugical H&P ROS: Negative: Constitution, Cardiovascular, Respiratory, Neurological, Psychiatric, Hem-Onc, Allergic/Immunologic, Gastrointestinal, Genitourinary, Musculoskeletal, Integumentary, Endocrine and Eyes/Ears/Nose/Throat Exam Surgical H&P Exam: Normal: HEENT, Normal: Heart, Normal: Lungs, Normal: E xtremities, Normal: Abdomen, Normal: Skin and Normal: Neurological Plan Diagnosis/Plan: Unchanged I have reviewed the history and physical and performed a pertinent physical examination on my patient. No changes have occurred unless specified. Time Spent With Patient Time: Total time managing care of this patient today ____ minutes.
[2022-07-20 11:45] VITALS: BP 126/68; PULSE 76; RESP 16; TEMP 36.4; O2SAT 95
[2022-07-20] MEDS: Lactated Ringers 1,000 ML 100 ML IVCONT (12:38)
--- NOTE | 2022-07-20 12:43 | P.OP_ITS ---
Operative Note Operative Note Date of Service: 07/20/22 Narrative: Operative Information Procedure Description: EGD, Colonoscopy Indication: barretts, screening colonoscopy Anesthesia: MAC FLEXIBLE TRANSORAL UPPER GASTROINTESTINAL ENDOSCOPY AND COLONOSCOPY PROCEDURE NOTE UPPER ENDOSCOPY Consent: Indications for the procedure and potential complications of bleeding, perforation, reaction to medications and missed diagnosis were discussed with the patient and informed consent was obtained. Instrument: Olympus GIF H 190 J mid size upper endoscope Monitoring: Vital signs and clinical assessment, continuous EKG monitoring, Pulse oximetry, Carbon Dioxide monitoring and blood pressure monitoring were done throughout the procedure. Procedure: The patient was placed in the left lateral decubitis position and pre-procedure medications were administered and a bite block was placed. The endoscope was inserted into the mouth and advanced under direct vision to the third part of duodenum. A careful inspection was made as the upper endoscope was withdrawn including a retroflexed examination of the proximal stomach; Findings and interventions are described below. Larynx:normal Esophagus: GE junction at 38? cm, diaphragm hiatus at 40 cm, islands of salmon pink mucosa noted, bx and brushings taken. There is a 2 cm sliding hiatal hernia with patulous LES Stomach: Normal mucosa, few fundic gland polyps noted. Grade 3 flap valve on retroflexed examination of the cardia. Duodenum: Normal bulb and descending duodenum. Intervention: Biopsies as noted above, brushings for WATS COLONOSCOPY Instrument: Olympus variable stiffness pediatric scope 190L Colonoscopy Monitoring: Vital signs and clinical assessment, continuous EKG monitoring, Pulse oximetry, Carbon Dioxide monitoring and blood pressure monitoring were done throughout the procedure. Colon withdrawal time was 10 minutes. Procedure: The patient was placed in the left lateral decubitis position and pre-procedure medications were administered. After a digital rectal examination of the ano-rectum, the video colonoscope was inserted into the rectum and advanced through the colon to the cecum/TI. The colonoscope was slowly withdrawn in a retrograde panoramic fashion and the colon mucosa was carefully examined including a retroflexed view of the rectum. Findings and interventions are described below. Procedure Difficulty:moderate due to looping and redundant colon Findings: Terminal Ileum-not intubated Cecum: x 2 sessile polyps 5-8 mm removed with cold forceps Ascending Colon: normal Transverse Colon - 4-5 mm sessile polyp removed with cold forceps Descending Colon:normal Sigmoid Colon: normal Rectum: Retroflexion with small internal hemorrhoids, grade I Anorectum - normal Colon preparation: [place] Bowel Preparation Scale Right colon; 2 Transverse colon: 2 Left colon; 2 (0 = Unprepared colon segment with mucosa not seen due to solid stool that cannot be cleared. 1 = Portion of mucosa of the colon segment seen, but other areas of the colon segment not well seen due to staining, residual stool and/or opaque liquid. 2 = Minor amount of residual staining, small fragments of stool and/or opaque liquid, but mucosa of colon segment seen well. 3 = Entire mucosa of colon segment seen well with no residual staining, small fragments of stool or opaque liquid) Impression and Post Procedure Diagnosis: Endoscopy Findings: hiatal hernia barretts Colonoscopy Findings: polyps internal hemorrhoids redundant colon Plan: Await Pathology results Repeat Colonoscopy in 5-7 years if health allows and she wishes to do it or earlier if clinically indicated, otherwise this would be her last screening colonoscopy High fiber diet leaflet avoid straining at stool, epsom salts and sitz bath, anusol supps or cream repeat EGD in 3-5 yrs if health allows Above findings were reviewed with the patient and relevant handouts were provided if indicated.
[2022-07-20 13:45] VITALS: BP 116/62; BP 116/63; PULSE 85; RESP 16; TEMP 36.3; O2SAT 96
[2022-07-20 14:00] VITALS: BP 124/68; PULSE 73; RESP 16; TEMP 36.5; O2SAT 93
== END 2022-07-20 14:45 | disposition home or self-care (01) ==
PROVIDERS: PCP Internal Medicine; Visit Provider Internal Medicine Gastroenterology
PROC: (CPT 45380; principal; 2022-07-20 12:50)
DX: Z12.11 Encounter for screening for malignant neoplasm of colon (principal); D12.0 Benign neoplasm of cecum; D12.3 Benign neoplasm of transverse colon; K56.2 Volvulus; K64.0 First degree hemorrhoids; Z86.010 Personal history of colon polyps; K22.70 Barrett's esophagus without dysplasia; K44.9 Diaphragmatic hernia without obstruction or gangrene
CPT/HCPCS: 45380; 43239; 88305

== ENCOUNTER → 2022-08-04 13:17 | Outpatient (BNVA) | payer MEDICARE, OTHER, SELFPAY | PROVIDERS: PCP Internal Medicine; Visit Provider Physician Assistant | DX: K22.70 Barrett's esophagus without dysplasia (principal); K21.9 Gastro-esophageal reflux disease without esophagitis; D12.0 Benign neoplasm of cecum; D12.3 Benign neoplasm of transverse colon; Z79.899 Other long term (current) drug therapy; Z98.890 Other specified postprocedural states | CPT/HCPCS: 99212; Q3014 ==

== ENCOUNTER 2022-12-14 07:15 | Outpatient (REF) | payer MEDICARE, OTHER, SELFPAY ==
[2022-12-14 11:53] LABS: Alanine Aminotransferase 6 U/L (0-31); Aspartate Amino Transferase 14 U/L (5-31); Cholesterol 161 mg/dL (<200); HDL Cholesterol 48 mg/dL (>40); LDL Cholesterol Calculated 89 mg/dL (<100); Triglycerides 120 mg/dL (<150)
[2022-12-14 12:12] LABS: Vitamin D 25-OH Total 54.4 ng/mL (>30)
== END 2022-12-14 07:16 | disposition home or self-care (01) ==
LOC: HO.HMGCLDS 07:15
PROVIDERS: PCP Internal Medicine; Visit Provider Internal Medicine
DX: Z78.0 Asymptomatic menopausal state (principal); E78.5 Hyperlipidemia, unspecified
CPT/HCPCS: 36415; 80061; 82306; 84450; 84460

== ENCOUNTER 2022-12-20 10:38 | Outpatient (AMB) | payer MEDICARE, OTHER, SELFPAY ==
[2022-12-20 11:14] VITALS: BP 116/60; PULSE 83; O2SAT 97; BMI 25.7
--- NOTE | 2022-12-20 11:14 | A.OFFPC_ITS ---
Vital Signs 12/20/22 11:14 Height 5 ft 6 in Weight 159 lb BMI 25.7 BP 116/60 Blood Pressure Location Rt brachial Position Sitting Pulse 83 Pulse Source Pulse Oximeter Pulse Oximetry (%) 97 Oxygen Delivery Method Room Air Intake Visit Reasons: 6 month Follow up Labs Cholesterol Intake Note: patient is here today for her 6 mo. f/u labs cholesterol Allergies No Known Allergies [No Known Allergies*] Allergy (Verified 12/20/22 11:15) Medication List - Last Reconciled 12/20/22 by Zaida Tate MD acetaminophen ER (Tylenol 8 Hour) 650 mg PO Q12H atorvastatin 10 mg PO DAILY cholecalciferol (vitamin D3) 25 mcg PO DAILY diclofenac sodium 1% 4 grams topical BID PRN pantoprazole 40 mg PO DAILY 90 days sertraline 100 mg PO BEDTIME Tobacco use date assessed: 12/20/22 Fall risk assessment: No Falls in past year Last assessed Fall Risk: 12/20/22 Dental Screening Dental Screen Date: 12/20/22 Did you have a dental visit in the last 12 months?: Yes Did you have a dental problem in the last 6 months where you did not have access to dental care?: Yes Was dental information given to patient?: Patient has dentist HPI 6 month Follow up Labs Cholesterol HPI Details 82-year-old lady here today for follow-u p on her lipids. Currently on atorvastatin 10 mg daily, compliant with taking her medications as directed and has been following a healthy diet, stays active , walks regularly for exercise. Recent fasting labs done showed lipids within normal limits. [facility] Medical History (Updated 12/20/22 @ 11:57 by Zaida Tate MD) COVID-19 vaccine administered Menopause Tubular adenoma of colon Depression Osteoarthritis, knee Reflux esophagitis Zaldivar's esophagus Synovial cyst of popliteal space [Machado], right knee Dyslipidemia Surgical History History of esophagogastroduodenoscopy (EGD) Hx of varicose vein ligation Hx of blepharoplasty H/O exploratory laparotomy Hx of colonoscopy Family History Father Colon cancer Sister Colon cancer Social History Household Members: None Household Members Other:: Housing: Condominium Are you a primary customer care team coach to a significant other at home: No Do you presently have visiting nurse or other home services: No Alcohol intake: current Alcohol intake frequency: a few times a week Alcohol type: wine Patient Tobacco Use Status: Former Tobacco user e-Cigarette/Vaping Use: Never Used Advance Directives Date on File: 12/24/20 Current occupational status: retired Cognitive needs: No Hearing needs: No Vision needs: No Questionnaire Thrive Questionnaire Date Thrive assessed: 12/20/22 I am a: Patient What is your living situation today?: I have a steady place to live Within the past 12 months, did the food you bought not last and you didn't have the money to get more?: Never true Within the past 12 months, did you worry whether your food would run out before you got money to buy more?: Never true Do you have trouble paying for medicines?: No Do you have trouble getting transportation to medical appointments?: No Do you have trouble paying your heating and electricity bill?: No Do you have trouble taking care of your child, family member or friend?: No Do you have trouble with day-to-day activities such as bathing, preparing meals, shopping, managing finances, etc.?: No Are you currently unemployed and looking for a job?: No Are you interested in more education?: No Please select the resources that you would like help with: None AUDIT C Alcohol Use Questionnaire (AUDIT-C) 1. How often do you have a drink containing alcohol?: Monthly or less 2. How many drinks containing alcohol do you have on a typical day when you are drinking?: 1 or 2 Total Score: 1 BHAVNA-7 AMB Questionnaire BHAVNA-7 Date BHAVNA - 7 assessed: 12/20/22 Feeling nervous, anxious, or on edge: 1 = Several days Not being able to stop or control worryin = Not at all Worrying too much about different things: 1 = Several days Trouble relaxin = Not at all Being so restless that it is hard to sit still: 0 = Not at all Becoming easily annoyed or irritable: 0 = Not at all Feeling afraid as if something awful might happen: 0 = Not at all Total BHAVNA-7 score (0-4 normal; 5-9 mild; 10-14 moderate; 15-21 severe): 2 Source: Developed by Drs. Farooq Santana, Judith Forrest, Otoniel Sahu and colleagues, with an educational maya from [employer]. BHAVNA-7 Assessment Billing BHAVNA-7 Assessment Tool: BHAVNA-7 Assessment 58136 Review of Systems Const All systems reviewed & are unremarkable except as noted in HPI and below Denies body aches, Denies fever(s) and Denies headache(s) ENT Denies dizziness, Denies headache(s), Denies nasal congestion, Denies nasal discharge and Denies sore throat Card Denies chest pain, Denies palpitations and Denies dyspnea Resp Denies dyspnea and Denies wheezing GI Denies abdominal pain, Denies heartburn, Denies nausea and Denies vomiting Reports no additional complaints Musc Reports stiffness Neuro Denies dizziness and Denies headache(s) Psych Denies anxiety and Denies depression Endo Denies palpitations Aller/Immun Denies wheezing Physical exam (Primary Care) Vital Signs: Last Vital Signs Pulse 83 12/20/22 11:14 BP 116/60 12/20/22 11:14 Pulse Ox 97 12/20/22 11:14 Oxygen Delivery Method Room Air 12/20/22 11:14 BMI result Body Mass Index 25.7 Tobacco/Smoking Status: Tobacco use Status Tobacco use date assessed 12/20/22 12/20/22 11:24 Patient Tobacco Use Status Former Tobacco user 12/20/22 11:24 e-Cigarette/Vaping Use Never Used 12/20/22 11:24 Thrive Assessment: Date of Thrive Assessment Date Thrive assessed 12/20/22 12/20/22 11:24 Const Other: Alert oriented x3, no acute distress noted ambulatory with normal gait [facility] Head: Yes normocephalic and Yes atraumatic General nose exam: Normal external nose present and No nasal discharge present Face and sinus: Yes sinuses nontender and Yes face symmetric Mouth: Normal oral and palatal mucosa present and moist mucous membranes Neck Other: Supple, no lymphadenopathy, thyroid gland nonpalpable Resp Effort & Inspection: normal respiratory effort and able to speak in complete sentences Auscultation: clear to auscultation bilaterally Cardio Other: S1-S2 present regular rate and rhythm GI Palpation (GI): Soft to palpation, nontender and no guarding Auscultation: normal bowel sounds Skin General skin exam: no rashes or lesions noted Extrem General: Yes full ROM, Yes no joint enlargement, Yes no clubbing, cyanosis or edema and Yes normal gait Results Reviewed Results Reviewed: RUN: 12/20/22 1139 PAGE 1 [facility] [address] [place] [id number] Manager Sharepoint: Baljit Burton M.D. Specimen Inquiry Name: Danielle Carrero Age/Sex: 82/F : 1940 Unit#: [id number] Attend Dr: Zaida Tate MD Re12/14/22 Status: DEP REF Location: HO.HMGCLDS Disch: SPEC : [id number] RUBÉN: 12/14/22 STATUS: COMP REQ : [id number] RECD: 12/14/[address]: Zaida Tate MD COMP: 12/14/22 ENTERED: 12/14/[address] [facility] [address]: ORDERED: AST, ALT, Lipid Panel, Vitamin D 25-OH Test Result Flag Reference Site AST (GOT) 14 5-31 U/L ALT (GPT) 6 0-31 U/L Triglyceride 120 <150 mg/dL Desirable Triglyceride: less than 150 mg/dL Borderline High Triglyceride 150-199 mg/dL High Triglyceride: 200-499 mg/dL Very High Triglyceride: greater than or equal to 5OO mg/dL Cholesterol 161 <200 mg/dL Desirable Cholesterol: less than 200 mg/dL Borderline High Cholesterol: 200-239 mg/dL High Cholesterol: greater than 239 mg/dL LDL Calculated 89 <100 mg/dL Desirable LDL: less than 100 mg/dL Near Optimal/Above Optimal LDL: 110-129 mg/dL Borderline High LDL: 130-159 mg/dL High LDL: 160-189 mg/dL Very High LDL: greater than or equal to 190 mg/dL HDL 48 >40 mg/dL Desirable HDL: greater than 40 mg/dL Note: This HDL assay may give artificially low results in patients with liver disease. Vit D 25-OH Tot 54.4 >30 ng/mL Health Based Reference Values* < 20 ng/mL Deficient 20-30 ng/mL Insufficient > 30 ng/mL Sufficient Assessment and Plan Assessment & Plan (1) Dyslipidemia: Code(s): E78.5 - Hyperlipidemia, unspecified Plan: Reviewed recent fasting lipid profile with patient with levels within normal limit . Continue with atorvastatin 10 mg daily , in addition to adherence to low-cholesterol diet and regular exercise, at least 30 minutes 3 to 4 times a week. Advised patient to make healthy food choices, eat more fruits, vegetables, whole grains, wild caught fish and low-fat dairy. Limit amount of meat and fried or fatty food products, as well as processed foods and fast foods. Follow-up scheduled with repeat fasting lipid panel in 6 months. Orders: Orders Lipid Panel 06/12/23 E78.5 - Hyperlipidemia, unspecified, Z78.0 - Asymptomatic menopausal state Alanine Aminotransferase 06/12/23 E78.5 - Hyperlipidemia, unspecified, Z78.0 - Asymptomatic menopausal state Aspartate Amino Transferase 06/12/23 E78.5 - Hyperlipidemia, unspecified, Z78.0 - Asymptomatic menopausal state Vitamin D 25-OH Total 06/12/23 E78.5 - Hyperlipidemia, unspecified, Z78.0 - Asymptomatic menopausal state Coding Level of Care Code Est Pt Level 3 (15186) Diagnoses Dyslipidemia E78.5 Additional Codes BHAVNA-7 Assessment Billing - BHAVNA-7 Assessment Tool: BHAVNA-7 Assessment 26954 ([id number])
== END 2022-12-20 12:00 | disposition home or self-care (01) ==
PROVIDERS: Visit Provider Internal Medicine
DX: E78.5 Hyperlipidemia, unspecified (principal)
CPT/HCPCS: 99213

== ENCOUNTER 2023-06-19 07:16 | Outpatient (REF) | payer MEDICARE, OTHER, SELFPAY ==
[2023-06-19 10:50] LABS: Alanine Aminotransferase 9 U/L (0-31); Aspartate Amino Transferase 16 U/L (5-31); Cholesterol 157 mg/dL (<200); HDL Cholesterol 45 mg/dL (>40); LDL Cholesterol Calculated 88 mg/dL (<100); Triglycerides 124 mg/dL (<150)
[2023-06-19 10:53] LABS: Vitamin D 25-OH Total 18.2 ng/mL (>30)
== END 2023-06-19 07:17 | disposition home or self-care (01) ==
LOC: HO.HMGCLDS 07:16
PROVIDERS: Internal Medicine; PCP Internal Medicine; Visit Provider Internal Medicine
DX: E78.5 Hyperlipidemia, unspecified (principal); Z78.0 Asymptomatic menopausal state
CPT/HCPCS: 36415; 80061; 82306; 84450; 84460

== ENCOUNTER 2023-06-22 08:26 | Outpatient (AMB) | payer MEDICARE, OTHER, SELFPAY ==
[2023-06-22 08:28] VITALS: BP 130/72; PULSE 80; O2SAT 95; BMI 25.7
--- NOTE | 2023-06-22 08:28 | A.OFFVIS_ITS ---
Intake Vital Signs 06/22/23 08:28 Height 5 ft 6 in Weight 159 lb BMI 25.7 BP 130/72 Blood Pressure Location Rt brachial Position Sitting Pulse 80 Pulse Source Pulse Oximeter Pulse Oximetry (%) 95 Oxygen Delivery Method Room Air Intake Visit Reasons: THUAN G0439 12/18/21 Discuss/Bill ACP Intake Note: Pt is here today for her SWV Allergies No Known Allergies [No Known Allergies*] Allergy (Verified 06/22/23 08:41) Medication List - Last Reconciled 06/22/23 by Zaida Tate MD acetaminophen ER (Tylenol 8 Hour) 650 mg PO Q12H atorvastatin 10 mg PO DAILY cholecalciferol (vitamin D3) 25 mcg PO DAILY diclofenac sodium 1% 4 grams topical BID PRN pantoprazole 40 mg PO DAILY 90 days sertraline 100 mg PO BEDTIME HPI THUAN G0439 12/18/21 Discuss/Bill ACP HPI Details 83-year-old lady here today for her subs equent wellness visit. Medical / Social History Reviewed? Past Medical History ?Yes . ? [place] of Care / Care Team list updated ?Yes . ? Surgical/Hospitalization History ?Yes . ? Current Medications (including OTC and supplements) ?Yes . ? Family History ?Yes . ? Tobacco Control form ?Yes . ? AUDIT-C (Alcohol use) form ?Yes . ? Illicit drug use in Social History ?Yes . ? Current diagnosis of depression? Yes, followed by psychiatry ? Appropriate PHQ2/PHQ9 completed ?Yes . ? Data entered by ?Food Operations Manager and reviewed by provider ? Fall Risk ? Fall History? Have you had any falls with injury in the past year? ?No . ? Have you had two or more falls in the past year? ?No . ? Fall Risk Assessment: ?No falls in the past year . ? HRA filled out by the patient, reviewed by Provider and scanned. ? SWV ? Balance? Romberg negative. ? Tandem walk ?yet ? Walk and Turn ?yes ? Rise from sit to stand ?Yes . ?Vision? Corrective lens ?Yes ? Vision screen ? Up-to-date, [facility] ?Hearing? Whisper test ?Pass ?Written Plan?Completed. See Patient Documents.? [facility] Medical History (Updated 06/23/23 @ 01:30 by Zaida Tate MD) Vitamin D deficiency COVID-19 vaccine administered Menopause Tubular adenoma of colon Depression Osteoarthritis, knee Reflux esophagitis Zaldivar's esophagus Synovial cyst of popliteal space [[place]], right knee Dyslipidemia Surgical History History of esophagogastroduodenoscopy (EGD) Hx of varicose vein ligation Hx of blepharoplasty H/O exploratory laparotomy Hx of colonoscopy Family History Father Colon cancer Sister Colon cancer Social History Household Members: None Household Members Other:: Housing: Condominium Are you a primary patient care director to a significant other at home: No Do you presently have visiting nurse or other home services: No Alcohol intake: current Alcohol intake frequency: a few times a week Alcohol type: wine Patient Tobacco Use Status: Former Tobacco user e-Cigarette/Vaping Use: Never Used Advance Directives Date on File: 12/24/20 Current occupational status: retired Cognitive needs: No Hearing needs: No Vision needs: No Questionnaire Medicare Wellness Checkup What is your age?: 80 or older What gender do you identify with?: female During the past 4 weeks, how much have you been bothered by emotional problems such as feeling anxious, depressed, irritable, sad or downhearted, and blue?: slightly During the past 4 weeks, has your physical & emotional health limited your social activities with family, friends, neighbors, or groups?: slightly During the past 4 weeks, how much bodily pain have you generally had?: mild pain During the past 4 weeks, was someone available to help you if you needed & wanted help?: yes, as much as I wanted During the past 4 weeks, what was the hardest physical activity you could do for at least 2 minutes?: moderate Can you get to places out of walking distance without help? (For eg., can you travel alone on buses, taxis or drive your car?): Yes Can you go shopping for groceries or clothes without someone's help?: Yes Can you prepare your own meals?: Yes Can you do your housework without help?: Yes Because of any health problems, do you need the help of another person with your personal care needs such as eating, bathing, dressing or getting around the house?: No Can you handle your own money without help?: Yes During the past 4 weeks, how would you rate your health in general?: very good During the past 4 weeks how have things been going for you?: very well; could hardly better Are you having difficulties driving your car?: no Do you always fasten your seat belt when you are in a car?: yes, usually During past 4 weeks, have you been bothered by the following: never: Falling or dizzy when standing up, Sexual problems? and Problems using the telephone?, seldom: Trouble eating well? and Teeth or denture problems? and sometimes: Tiredness or fatigue? Have you fallen 2 or more times in the past year?: No Are you afraid of falling?: No Are you a smoker?: no During the past 4 weeks, how many drinks of wine, beer, or other alcoholic beverages did you have?: 2-5 drinks per week Do you exercise for about 20 minutes 3 or more times a week?: yes, all the time Have you been given information to help with the following?: no: Hazards in your house that might hurt you? and no: Keeping track of your medications? How often do you have trouble taking medicines the way you have been told to take them?: I always take medicine as prescribed What is your race?: White Mini Mental State Exam (MMSE) Orientation What is the (year) (season) (date) (day) (month)?: year (2023), season (Spring), date (06/22/2023), day () and month (June) Where are we (state) (county) (town or city) (hospital) (floor)?: state ([place]), [facility] ([place]), town or city ([place]) and hospital/clinic ([facility]) Score Score: 9 Activity of Daily Living Bathing - sponge bath, tub bath or shower: receives no assistance (gets in/out by self, if usual bathing means Dressing - getting clothes from closets & drawers, including inner/outer garments & fasteners.: gets clothes & gets completely dressed without help Toileting - going to the 'toilet room' for urine/bowel elimination & cleaning self/arranging clothes: goes to toilet room, cleans self, arranges clothes without help Transfer: moves in & out of bed and chair without help (may use support object) Continence: has occasional 'accidents' Feeding: feeds self without help Total Score: 0 Information obtained from: patient Using telephone: independent Traveling: independent Shopping: independent Preparing meals: independent Housework: independent Taking medicine: independent Managing money: independent PHQ-9 Over the last 2 weeks, how often have you been bothered by any of the following problems? 1. Little interest or pleasure in doing things: several days 2. Feeling down, depressed, or hopeless: several days 3. Trouble falling or staying asleep, or sleeping too much: not at all 4. Feeling tired or having little energy: not at all 5. Poor appetite or overeating: not at all 6. Feeling bad about yourself - or that you are a failure or have let yourself or your family down: not at all 7. Trouble concentrating on things, such as reading the newspaper or watching television: not at all 8. Moving or speaking so slowly that other people could have noticed. Or the opp osite - being so fidgety or restless that you have been moving around a lot more than usual: not at all 9. Thoughts that you would be better off or of hurting yourself in some way: not at all Total score: 2 Depression Screening Interpretation: Negative (Depression stable and controlled on present treatment. Sees psychiatrist) Depression Screening Done: Yes 82251 - PHQ-9 Billing: Yes Source: Developed by Drs. Farooq Santana, Judith Forrest, Otoniel Sahu and colleagues, with an educational maya from [employer]. Review of Systems Const Reports no additional complaints Eyes Details: [facility]es [facility] ENT Denies dizziness, Denies nasal congestion, Denies nasal discharge and Denies sore throat Card Denies chest pain, Denies palpitations and Denies dyspnea Resp Denies dyspnea and Denies wheezing GI Reports as per HPI, Denies abdominal pain, Denies melena, Denies hematochezia, Denies change in bowel habits, Denies nausea and Denies vomiting Reports no additional complaints Musc Reports stiffness Neuro Denies dizziness Psych Denies anxiety and Denies depression Endo Denies palpitations Benito/Lymph Reports no additional complaints Aller/Immun Denies wheezing Physical Exam Vital Signs: Last Vital Signs Pulse 80 06/22/23 08:28 BP 130/72 06/22/23 08:28 Pulse Ox 95 06/22/23 08:28 Oxygen Delivery Method Room Air 06/22/23 08:28 BMI result Body Mass Index 25.7 Results Reviewed Results Reviewed: Name: Danielle Carrero Age/Sex: 83/F : 1940 Unit#: [id number] Attend Dr: Edith Nino MD Re06/19/23 Status: DEP REF Location: [facility] Disch: SPEC : [id number] RUBÉN: 06/19/23 STATUS: COMP REQ : [id number] RECD: 06/19/23-[address]: Zaida Tate MD COMP: 06/19/23 ENTERED: 06/19/[address]: Edith Nino MD ORDERED: AST, ALT, Lipid Panel, Vitamin D 25-OH Test Result Flag Reference AST (GOT) 16 5-31 U/L ALT (GPT) 9 0-31 U/L Triglyceride 124 <150 mg/dL Desirable Triglyceride: less than 150 mg/dL Borderline High Triglyceride 150-199 mg/dL High Triglyceride: 200-499 mg/dL Very High Triglyceride: greater than or equal to 5OO mg/dL Cholesterol 157 <200 mg/dL Desirable Cholesterol: less than 200 mg/dL Borderline High Cholesterol: 200-239 mg/dL High Cholesterol: greater than 239 mg/dL LDL Calculated 88 <100 mg/dL Desirable LDL: less than 100 mg/dL Near Optimal/Above Optimal LDL: 110-129 mg/dL Borderline High LDL: 130-159 mg/dL High LDL: 160-189 mg/dL Very High LDL: greater than or equal to 190 mg/dL HDL 45 >40 mg/dL Desirable HDL: greater than 40 mg/dL Note: This HDL assay may give artificially low results in patients with liver disease. Vit D 25-OH Tot 18.2 L >30 ng/mL Health Based Reference Values* < 20 ng/mL Deficient 20-30 ng/mL Insufficient > 30 ng/mL Sufficient Assessment & Plan Assessment & Plan (1) Encounter for subsequent annual wellness visit in Medicare patient: Code(s): Z00.00 - Encounter for general adult medical examination without abnormal findings Plan: Medical wellness checklist reviewed discussed with patient and updated. Up-to-date with her advanced directives and already received all vaccinations required (2) Vitamin D deficiency: Code(s): E55.9 - Vitamin D deficiency, unspecified Plan: Recent labs showed vitamin-D deficiency, prescription sent for vitamin-D 3 52559 units per capsule to take once a week for the next 3 months, once finished taking the prescription, to continue taking gdzy-giz-jhprnid vitamin D3 at 2000 units daily (3) Dyslipidemia: Code(s): E78.5 - Hyperlipidemia, unspecified Plan: Reviewed recent fasting lipid profile with patient with levels within normal limits . Continue with atorvastatin 10 mg daily , in addition to adherence to low-cholesterol diet and regular exercise, at least 30 minutes 3 to 4 times a week. Advised patient to make healthy food choices, eat more fruits, vegetables, whole grains, wild caught fish and low-fat dairy. Limit amount of meat and fried or fatty food products, as well as processed foods and fast foods. Follow-up scheduled with repeat fasting lipid panel in 6 months. (4) Zaldivar's esophagus: Comment: EGD-Zaldivar's -reinforced importance pantoprazole 40 mg daily She as well as taking famotidine at HS with very good response Will check with [facility] if further EGD advised. Code(s): K22.70 - Zaldivar's esophagus without dysplasia Qualifiers: Zaldivar's esophagus type: without dysplasia Qualified Code(s): K22.70 - Zaldivar's esophagus without dysplasia Plan: Currently on pantoprazole 40 mg daily followed by GI clinic, repeat endoscopy again in 3 years (5) Osteoarthritis, knee: Code(s): M17.10 - Unilateral primary osteoarthritis, unspecified knee Qualifiers: Osteoarthritis type: primary Laterality: unspecified laterality Qualified Code(s): M17.10 - Unilateral primary osteoarthritis, unspecified knee Plan: Uses diclofenac sodium 1% gel massaged to affected area twice a day as needed, takes Tylenol ER 650 mg 1 tablet every 12 hours as needed for joint pain (6) Depression: Comment: followed By Psychiatry Code(s): F32.9 - Major depressive disorder, single episode, unspecified Qualifiers: Depression Type: major depressive disorder Major depression recurrence: recurrent Active/Remission status: in full remission Qualified Code(s): F33.42 - Major depressive disorder, recurrent, in full remission Plan: Currently on sertraline 100 mg at bedtime, followed by psychiatry (7) Tubular adenoma of colon: Code(s): D12.6 - Benign neoplasm of colon, unspecified Plan: Tubular adenoma seen on last colonoscopy, repeat colonoscopy again in 2025 Orders: Orders Glucose Fasting 11/18/23 D12.6 - Benign neoplasm of colon, unspecified, E55.9 - Vitamin D deficiency, unspecified, E78.5 - Hyperlipidemia, unspecified, K22.70 - Zaldivar's esophagus without dysplasia, M17.10 - Unilateral primary oste oarthritis, unspecified knee, Z00.00 - Encounter for general adult medical examination without abnormal findings, Z78.0 - Asymptomatic menopausal state Alanine Aminotransferase 11/18/23 D12.6 - Benign neoplasm of colon, unspecified, E55.9 - Vitamin D deficiency, unspecified, E78.5 - Hyperlipidemia, unspecified, K22.70 - Zaldivar's esophagus without dysplasia, M17.10 - Unilateral primary osteoarthritis, unspecified knee, Z00.00 - Encounter for general adult medical examination without abnormal findings, Z78.0 - Asymptomatic menopausal state Aspartate Amino Transferase 11/18/23 D12.6 - Benign neoplasm of colon, unspecified, E55.9 - Vitamin D deficiency, unspecified, E78.5 - Hyperlipidemia, unspecified, K22.70 - Zaldivar's esophagus without dysplasia, M17.10 - Unilateral primary osteoarthritis, unspecified knee, Z00.00 - Encounter for general adult medical examination without abnormal findings, Z78.0 - Asymptomatic menopausal state Lipid Panel 11/18/23 D12.6 - Benign neoplasm of colon, unspecified, E55.9 - Vitamin D deficiency, unspecified, E78.5 - Hyperlipidemia, unspecified, K22.70 - Zaldivar's esophagus without dysplasia, M17.10 - Unilateral primary osteoarthritis, unspecified knee, Z00.00 - Encounter for general adult medical examination without abnormal findings, Z78.0 - Asymptomatic menopausal state Vitamin D 25-OH Total 11/18/23 D12.6 - Benign neoplasm of colon, unspecified, E55.9 - Vitamin D deficiency, unspecified, E78.5 - Hyperlipidemia, unspecified, K22.70 - Zaldivar's esophagus without dysplasia, M17.10 - Unilateral primary osteoarthritis, unspecified knee, Z78.0 - Asymptomatic menopausal state Hemoglobin and Hematocrit 11/18/23 D12.6 - Benign neoplasm of colon, unspecified, E55.9 - Vitamin D deficiency, unspecified, E78.5 - Hyperlipidemia, unspecified, K22.70 - Zaldivar's esophagus without dysplasia, M17.10 - Unilateral primary osteoarthritis, unspecified knee, Z00.00 - Encounter for general adult medical examination without abnormal findings, Z78.0 - Asymptomatic menopausal state Medications: New cholecalciferol (vitamin D3) 1,250 mcg PO QWEEK 3 months 13 caps 0RF E55.9 - Vitamin D deficiency, unspecified Refilled pantoprazole 40 mg PO DAILY 90 days 90 tabs 3RF atorvastatin 10 mg PO DAILY 90 tabs 3RF Quality Reporting (2019) Depression/Bipolar (159/160/161/177) PHQ-9: Total score: 2 Coding Level of Care Code Medicare Subsequent (G0439) Diagnoses Encounter for subsequent annual wellness visit in Medicare patient Z00.00 Vitamin D deficiency E55.9 Dyslipidemia E78.5 Zaldivar's esophagus without dysplasia K22.70 Zaldivar's esophagus type: without dysplasia Primary osteoarthritis of knee, unspecified laterality M17.10 Osteoarthritis type: primary Laterality: unspecified laterality Recurrent major depressive disorder, in full remission F33.42 Depression Type: major depressive disorder Major depression recurrence: recurrent Active/Remission status: in full remission Tubular adenoma of colon D12.6 CPT Codes Advance Care Planning - Time spent: 1-15 minutes, on File ([id number]) Advance Care Planning Forms completed: Health Care Proxy and MOLST Time spent: 1-15 minutes, on File Actual minutes spent: 15
== END 2023-06-22 09:18 | disposition home or self-care (01) ==
PROVIDERS: Visit Provider Internal Medicine
DX: Z00.00 Encounter for general adult medical examination without abnormal findings (principal); F33.42 Major depressive disorder, recurrent, in full remission; E55.9 Vitamin D deficiency, unspecified; E78.5 Hyperlipidemia, unspecified; K22.70 Barrett's esophagus without dysplasia; D12.6 Benign neoplasm of colon, unspecified; M17.10 Unilateral primary osteoarthritis, unspecified knee
CPT/HCPCS: 1123F; G0439

== ENCOUNTER 2023-11-16 08:35 | Outpatient (REF) | payer MEDICARE, OTHER, SELFPAY ==
[2023-11-16 10:06] LABS: Hematocrit 40.4 % (37.0-47.0); Hemoglobin 13.2 g/dl (12.0-16.0)
[2023-11-16 11:13] LABS: Alanine Aminotransferase 11 U/L (0-31); Aspartate Amino Transferase 16 U/L (5-31); Cholesterol 166 mg/dL (<200); Glucose Fasting 94 mg/dL (60-99); HDL Cholesterol 40 mg/dL (>40); LDL Cholesterol Calculated 94 mg/dL (<100); Triglycerides 162 mg/dL (<150)
[2023-11-16 11:15] LABS: Vitamin D 25-OH Total 39.6 ng/mL (>30)
== END 2023-11-16 08:36 | disposition home or self-care (01) ==
LOC: HO.HMGCLDS 08:35
PROVIDERS: PCP Internal Medicine; Visit Provider Internal Medicine
DX: Z00.00 Encounter for general adult medical examination without abnormal findings (principal); E55.9 Vitamin D deficiency, unspecified; Z78.0 Asymptomatic menopausal state; D12.6 Benign neoplasm of colon, unspecified; M17.10 Unilateral primary osteoarthritis, unspecified knee; K22.70 Barrett's esophagus without dysplasia; E78.5 Hyperlipidemia, unspecified
CPT/HCPCS: 36415; 80061; 82306; 82947; 84450; 84460; 85014; 85018

== ENCOUNTER 2024-06-20 06:57 | Outpatient (REF) | payer MEDICARE, OTHER, SELFPAY ==
[2024-06-20 12:00] LABS: Anion Gap 14 (12-20); Blood Urea Nitrogen 14 mg/dL (9-16); Calcium 9.5 mg/dL (8.4-10.2); Carbon Dioxide 24 mmol/L (22-29); Chloride 107 mmol/L (96-108); Estimated Glomerular Filt Rate > 60; Glucose Fasting 94 mg/dL (60-99); Potassium 4.2 mmol/L (3.3-5.1); Sodium 141 mmol/L (135-145)
[2024-06-20 12:01] LABS: Alanine Aminotransferase 11 U/L (0-31); Aspartate Amino Transferase 21 U/L (5-31); Cholesterol 161 mg/dL (<200); HDL Cholesterol 43 mg/dL (>40); LDL Cholesterol Calculated 91 mg/dL (<100); Triglycerides 138 mg/dL (<150)
[2024-06-20 12:19] LABS: Vitamin D 25-OH Total 19.6 ng/mL (>30)
== END 2024-06-20 06:58 | disposition home or self-care (01) ==
LOC: HO.HMGCLDS 06:57
PROVIDERS: PCP Internal Medicine; Visit Provider Internal Medicine
DX: E78.5 Hyperlipidemia, unspecified (principal); Z78.0 Asymptomatic menopausal state
CPT/HCPCS: 36415; 80048; 80061; 82306; 84450; 84460

== ENCOUNTER 2024-06-24 08:48 | Outpatient (AMB) | payer MEDICARE, OTHER, SELFPAY ==
[2024-06-24 09:48] VITALS: BP 142/80; PULSE 70; RESP 16; TEMP 36.4; O2SAT 98; BMI 26.0
--- NOTE | 2024-06-24 09:48 | A.OFFVIS_ITS ---
Intake Vital Signs 06/24/24 09:48 Height 5 ft 6 in Weight 161 lb BMI 26.0 BP 142/80 H Blood Pressure Location Rt brachial Position Sitting Respiration 16 Pulse 70 Pulse Source Pulse Oximeter Temp 97.6 F Temp Source Oral Pulse Oximetry (%) 98 Oxygen Delivery Method Room Air Intake Visit Reasons: SWV G0439 12/18/21 Discuss/Bill ACP Intake Note: Pt is here today for her SWV: last mammogram 01/07/22, colonoscopy 08/04/22 Allergies No Known Allergies [No Known Allergies*] Allergy (Verified 06/24/24 10:11) Medication List - Last Reconciled 06/24/24 by Zaida Tate MD acetaminophen ER (Tylenol 8 Hour) 650 mg PO Q12H atorvastatin 10 mg PO DAILY diclofenac sodium 1% 4 grams topical BID PRN pantoprazole 40 mg PO DAILY sertraline 100 mg PO BEDTIME HPI SWV G0439 12/18/21 Discuss/Bill ACP HPI Details SWV ? 84 year old lady with history dyslipidemia, Zaldivar's esophagus, osteoarthritis, depression and adenomatous polyp of colon, presents for her subsequent? Annual Wellness Visit. She had her last screening mammogram done 12/29/2021 with normal findings does not want to get any further screening done. Her last colonoscopy was done 07/20/2022 with removal of a tubular adenoma polyp, due in 2025 for a recheck per Dr. Weldon this year. She no longer gets cervical cancer screenings done, last bone density scan was done 01/07/2022 with normal bone density seen. She is up-to-date with her screening for lipids and diabetes, both done 06/20/2024 with normal results. She is up-to-date with her yearly flu shot, pneumonia vaccination, has had her shingles vaccine and Tdap but no longer gets COVID boosters. ? Medical / Social History Reviewed? Past Medical History ?Yes . ? [place] of Care / Care Team list updated ?Yes . ? Surgical/Hospitalization History ?Yes . ? Current Medications (including OTC and supplements) ?Yes . ? Family History ?Yes . ? Tobacco Control form ?Yes . ? AUDIT-C (Alcohol use) form ?Yes . ? Illicit drug use in Social History ?Yes . ? Current diagnosis of depression? ?yes, currently on sertraline, followed by Psychiatry and sees her therapist regularly ? Appropriate PHQ2/PHQ9 completed ?Yes . ? Data entered by ?[employer] and reviewed by provider ? Fall Risk ? Fall History? Have you had any falls with injury in the past year? ?No . ? Have you had two or more falls in the past year? ?No . ? Fall Risk Assessment: ?No falls in the past year . ? HRA filled out by the patient, reviewed by Provider and scanned. ?SWV ? Balance? Romberg negative. ? Tandem walk ?Yes . ? Walk and Turn ?Yes . ? Rise from sit to stand ?Yes . ?Vision? Corrective lens ?Yes ? Vision screen ? Up-to-date, goes to [facility] have has an appointment already scheduled in July 2024 for her eye exam ?Hearing? Whisper test ?pass . ?Written Plan?Completed. See Patient Documents.? [facility] Medical History (Updated 06/30/24 @ 20:17 by Zaida Tate MD) Vitamin D deficiency History of adenomatous polyp of colon COVID-19 vaccine administered Menopause Tubular adenoma of colon Depression Osteoarthritis, knee Reflux esophagitis Zaldivar's esophagus Synovial cyst of popliteal space [[place]], right knee Dyslipidemia Surgical History History of esophagogastroduodenoscopy (EGD) Hx of varicose vein ligation Hx of blepharoplasty H/O exploratory laparotomy Hx of colonoscopy Family History Father Colon cancer Sister Colon cancer Social History Household Members: None Household Members Other:: Housing: Condominium Are you a primary congregational care pastor to a significant other at home: No Do you presently have visiting nurse or other home services: No Alcohol intake: current Alcohol intake frequency: a few times a week Alcohol type: wine Patient Tobacco Use Status: Former Tobacco user e-Cigarette/Vaping Use: Never Used Advance Directives Date on File: 12/24/20 Current occupational status: retired Cognitive needs: No Hearing needs: No Vision needs: No Questionnaire Medicare Wellness Checkup What is your age?: 80 or older What gender do you identify with?: female During the past 4 weeks, how much have you been bothered by emotional problems such as feeling anxious, depressed, irritable, sad or downhearted, and blue?: slightly During the past 4 weeks, has your physical & emotional health limited your social activities with family, friends, neighbors, or groups?: not at all During the past 4 weeks, how much bodily pain have you generally had?: very mild pain During the past 4 weeks, was someone available to help you if you needed & wanted help?: yes, as much as I wanted During the past 4 weeks, what was the hardest physical activity you could do for at least 2 minutes?: heavy Can you get to places out of walking distance without help? (For eg., can you travel alone on buses, taxis or drive your car?): Yes Can you go shopping for groceries or clothes without someone's help?: Yes Can you prepare your own meals?: Yes Can you do your housework without help?: Yes Because of any health problems, do you need the help of another person with your personal care needs such as eating, bathing, dressing or getting around the house?: No Can you handle your own money without help?: Yes During the past 4 weeks, how would you rate your health in general?: very good During the past 4 weeks how have things been going for you?: pretty well Are you having difficulties driving your car?: no Do you always fasten your seat belt when you are in a car?: yes, usually During past 4 weeks, have you been bothered by the following: never: Sexual problems?, Trouble eating well? and Problems using the telephone? and seldom: Falling or dizzy when standing up, Teeth or denture problems? and Tiredness or fatigue? Have you fallen 2 or more times in the past year?: No Are you afraid of falling?: No Are you a smoker?: no During the past 4 weeks, how many drinks of wine, beer, or other alcoholic beverages did you have?: 1 drink or less per week Do you exercise for about 20 minutes 3 or more times a week?: yes, all the time Have you been given information to help with the following?: no: Hazards in your house that might hurt you? and no: Keeping track of your medications? How often do you have trouble taking medicines the way you have been told to devin e them?: I always take medicine as prescribed How confident are you that you can control & manage most of your health problems?: very confident What is your race?: White Mini Mental State Exam (MMSE) Orientation What is the (year) (season) (date) (day) (month)?: year (2024), season (Spring), date (06/24/2024), day (Monday) and month (June) Where are we (state) (county) (town or city) (hospital) (floor)?: state ([place]), [facility] town or city ([place]) and hospital/clinic ([facility]) Score Score: 9 Activity of Daily Living Bathing - sponge bath, tub bath or shower: receives no assistance (gets in/out by self, if usual bathing means Dressing - getting clothes from closets & drawers, including inner/outer garments & fasteners.: gets clothes & gets completely dressed without help Toileting - going to the 'toilet room' for urine/bowel elimination & cleaning self/arranging clothes: goes to toilet room, cleans self, arranges clothes without help Transfer: moves in & out of bed and chair without help (may use support object) Continence: has occasional 'accidents' Feeding: feeds self without help Total Score: 0 Information obtained from: patient Using telephone: independent Traveling: independent Shopping: independent Preparing meals: independent Housework: independent Taking medicine: independent Managing money: independent PHQ-9 Over the last 2 weeks, how often have you been bothered by any of the following problems? 1. Little interest or pleasure in doing things: not at all 2. Feeling down, depressed, or hopeless: not at all 3. Trouble falling or staying asleep, or sleeping too much: not at all 4. Feeling tired or having little energy: not at all 5. Poor appetite or overeating: not at all 6. Feeling bad about yourself - or that you are a failure or have let yourself or your family down: not at all 7. Trouble concentrating on things, such as reading the newspaper or watching television: not at all 8. Moving or speaking so slowly that other people could have noticed. Or the opposite - being so fidgety or restless that you have been moving around a lot more than usual: not at all 9. Thoughts that you would be better off or of hurting yourself in some way: not at all Total score: 0 Depression Screening Interpretation: Negative Depression Screening Done: Yes 26895 - PHQ-9 Billing: Yes Source: Developed by Drs. Farooq Santana, Judith Forrest, Otoniel Sahu and colleagues, with an educational maya from [employer]. Physical Exam Vital Signs: Last Vital Signs Temp 97.6 F 06/24/24 09:48 Pulse 70 06/24/24 09:48 Resp 16 06/24/24 09:48 BP 142/80 H 06/24/24 09:48 Pulse Ox 98 06/24/24 09:48 Oxygen Delivery Method Room Air 06/24/24 09:48 BMI result Body Mass Index 26.0 Results Reviewed Results Reviewed: Name: Danielle Carrero Age/Sex: 84/F : 1940 Unit#: [id number] Attend Dr: Zaida Tate MD Re06/20/24 Status: DEP REF Location: [facility] Disch: SPEC : [id number] RUBÉN: 06/20/24 STATUS: COMP REQ : [id number] RECD: 06/20/[address]: Zaida Tate MD COMP: 06/20/24-1218 ENTERED: 06/20/24-[address]: ORDERED: Met Prof Fast, AST, ALT, Lipid Panel, Vitamin D 25-OH Test Result Flag Reference Sodium 141 135-145 mmol/L Potassium 4.2 3.3-5.1 mmol/L CL 107 96-108 mmol/L CO2 24 22-29 mmol/L Gap 14 12-20 BUN 14 9-16 mg/dL Creat 0.70 0.5-1.4 mg/dL eGFR > 60 Chronic Kidney Disease: Estimated GFR < 60 mL/min/1.73m2 Severe Kidney Disease: Estimated GFR < 15 mL/min/1.73m2 FBS 94 60-99 mg/dL CA 9.5 8.4-10.2 mg/dL AST (GOT) 21 5-31 U/L ALT (GPT) 11 0-31 U/L Triglyceride 138 <150 mg/dL Desirable Triglyceride: less than 150 mg/dL Borderline High Triglyceride 150-199 mg/dL High Triglyceride: 200-499 mg/dL Very High Triglyceride: greater than or equal to 5OO mg/dL Cholesterol 161 <200 mg/dL Desirable Cholesterol: less than 200 mg/dL Borderline High Cholesterol: 200-239 mg/dL High Cholesterol: greater than 239 mg/dL LDL Calculated 91 <100 mg/dL Desirable LDL: less than 100 mg/dL Near Optimal/Above Optimal LDL: 110-129 mg/dL Borderline High LDL: 130-159 mg/dL High LDL: 160-189 mg/dL Very High LDL: greater than or equal to 190 mg/dL HDL 43 >40 mg/dL Desirable HDL: greater than 40 mg/dL Note: This HDL assay may give artificially low results in patients with liver disease. Vitamin D 25-OH 19.6 L >30 ng/mL Health Based Reference Values* < 20 ng/mL Deficient 20-30 ng/mL Insufficient > 30 ng/mL Sufficient Assessment & Plan Assessment & Plan (1) History of adenomatous polyp of colon: Code(s): Z86.0101 - Personal history of adenomatous and serrated colon polyps Plan: Due for her repeat colonoscopy in 2025, per Dr. Weldon (2) Osteoarthritis, knee: Code(s): M17.10 - Unilateral primary osteoarthritis, unspecified knee Qualifiers: Laterality: unspecified laterality Osteoarthritis type: primary Qualified Code(s): M17.10 - Unilateral primary osteoarthritis, unspecified knee Plan: Takes acetaminophen ER 650 mg every 12 hours as needed (3) Reflux esophagitis: Code(s): K21.00 - Gastro-esophageal reflux disease with esophagitis, without bleeding Qualifiers: Esophagitis bleeding: without hemorrhage Qualified Code(s): K21.00 - Gastro-esophageal reflux disease with esophagitis, without bleeding Plan: Currently on pantoprazole 40 mg daily (4) Zaldivar's esophagus: Comment: EGD-Zaldivar's -reinforced importance pantoprazole 40 mg daily She as well as taking famotidine at HS with very good response Will check with Shriaz if further EGD advised. Code(s): K22.70 - Zaldivar's esophagus without dysplasia Qualifiers: Zaldivar's esophagus type: without dysplasia Qualified Code(s): K22.70 - Zaldivar's esophagus without dysplasia Plan: Takes pantoprazole 40 mg daily (5) Dyslipidemia: Code(s): E78.5 - Hyperlipidemia, unspecified Plan: Fasting lipid panel within normal limits Continued on atorvastatin 10 mg daily (6) Encounter for subsequent annual wellness visit (AWV) in Medicare patient: Code(s): Z00.00 - Encounter for general adult medical examination without abnormal findings Plan: Medical wellness checklist reviewed, discussed with patient and updated. Up-to-date with all her vaccinations and screenings. (7) Advanced directives, counseling/discussion: Code(s): Z71.89 - Other specified counseling Plan: She is up-to-date with her healthcare proxy and MOLST form already completed on previous visits. Bone density scan and screening mammogram ordered (8) Vitamin D deficiency: Code(s): E55.9 - Vitamin D deficiency, unspecified Plan: Refill prescription for high-dose vitamin-D 3 [place] [address] units per capsule taken once a week for the next 3 months Orders: Orders XR DEXA axial skeleton 06/24/24 Z12.31 - Encounter for screening mammogram for malignant neoplasm of breast, Z13.820 - Encounter for screening for osteoporosis, Z78.0 - Asymptomatic menopausal state MM tomosynthesis screening BI 06/24/24 Z12.31 - Encounter for screening mammogram for malignant neoplasm of breast, Z13.820 - Encounter for screening for osteoporosis, Z78.0 - Asymptomatic menopausal state Hemoglobin and Hematocrit 12/18/24 D12.6 - Benign neoplasm of colon, unspecified, E78.5 - Hyperlipidemia, unspecified, K21.00 - Gastro-esophageal reflux disease with esophagitis, without bleeding, K22.70 - Zaldivar's esophagus without dysplasia, M17.10 - Unilateral primary osteoarthritis, unspecified knee, Z00.00 - Encounter for general adult medical examination without abnormal findings, Z71.89 - Other specified counseling, Z86.0101 - Personal history of adenomatous and serrated colon polyps Vitamin D 25-OH Total 12/18/24 D12.6 - Benign neoplasm of colon, unspecified, E78.5 - Hyperlipidemia, unspecified, K21.00 - Gastro-esophageal reflux disease with esophagitis, without bleeding, K22.70 - Zaldivar's esophagus without dysplasia, M17.10 - Unilateral primary osteoarthritis, unspecified knee, Z00.00 - Encounter for general adult medical examination without abnormal findings, Z71.89 - Other specified counseling, Z86.0101 - Personal history of adenomatous and serrated colon polyps Lipid Panel 12/18/24 D12.6 - Benign neoplasm of colon, unspecified, E78.5 - Hyperlipidemia, unspecified, K21.00 - Gastro-esophageal reflux disease with esophagitis, without bleeding, K22.70 - Zaldivar's esophagus without dysplasia, M17.10 - Unilateral primary osteoarthritis, unspecified knee, Z00.00 - Encounter for general adult medical examination without abnormal findings, Z86.0101 - Personal history of adenomatous and serrated colon polyps Basic Metabolic Panel Fasting 12/18/24 D12.6 - Benign neoplasm of colon, unspecified, E78.5 - Hyperlipidemia, unspecified, K21.00 - Gastro-esophageal reflux disease with esophagitis, without bleeding, K22.70 - Zaldivar's esophagus without dysplasia, M17.10 - Unilateral primary osteoarthritis, unspecified knee, Z00.00 - Encounter for general adult medical examination without abnormal findings, Z71.89 - Other specified counseling, Z86.0101 - Personal history of adenomatous and serrated colon polyps Aspartate Amino Transferase 12/18/24 D12.6 - Benign neoplasm of colon, unspecified, E78.5 - Hyperlipidemia, unspecified, K21.00 - Gastro-esophageal reflux disease with esophagitis, without bleeding, K22.70 - Zaldivar's esophagus without dysplasia, M17.10 - Unilateral primary osteoarthritis, unspecified knee, Z00.00 - Encounter for general adult medical examination without abnormal findings, Z71.89 - Other specified counseling, Z86.0101 - Personal history of adenomatous and serrated colon polyps Alanine Aminotransferase 12/18/24 D12.6 - Benign neoplasm of colon, unspecified, E78.5 - Hyperlipidemia, unspecified, K21.00 - Gastro-esophageal reflux disease with esophagitis, without bleeding, K22.70 - Zaldivar's esophagus without dysplasia, M17.10 - Unilateral primary osteoarthritis, unspecified knee, Z00.00 - Encounter for general adult medical examination without abnormal findings, Z71.89 - Other specified counseling, Z86.0101 - Personal history of adenomatous and serrated colon polyps Medications: Refilled cholecalciferol (vitamin D3) 1,250 mcg PO QWEEK 3 months 13 caps 0RF E55.9 - Vitamin D deficiency, unspecified Quality Reporting (2019) Depression/Bipolar (159/160/161/177) PHQ-9: Total score: 0 Coding Level of Care Code Medicare Subsequent (G0439) Diagnoses History of adenomatous polyp of colon Z86.010 Primary osteoarthritis of knee, unspecified laterality M17.10 Laterality: unspecified laterality Osteoarthritis type: primary Gastroesophageal reflux disease with esophagitis without hemorrhage K21.00 Esophagitis bleeding: without hemorrhage Zaldivar's esophagus without dysplasia K22.70 Zaldivar's esophagus type: without dysplasia Dyslipidemia E78.5 Encounter for subsequent annual wellness visit (AWV) in Medicare patient Z00.00 Advanced directives, counseling/discussion Z71.89 Vitamin D deficiency E55.9 CPT Codes Advance Care Planning - Advance Care Planning discussion: On file, no changes ([id number]) Advance Care Planning - Time spent: 1-15 minutes, on File ([id number]) Additional Codes PHQ-9 - 97885 - PHQ-9 Billing: Yes ([id number]) Advance Care Planning Advance Care Planning discussion: On file, no changes Date of discussion: 06/24/24 Who was present: Patient Forms completed: Health Care Proxy and MOLST Time spent: 1-15 minutes, on File Actual minutes spent: 1
== END 2024-06-24 10:26 | disposition home or self-care (01) ==
LOC: HO.HMCC 08:48
PROVIDERS: PCP Internal Medicine; Visit Provider Internal Medicine
DX: Z00.00 Encounter for general adult medical examination without abnormal findings (principal); Z86.0101 Personal history of adenomatous and serrated colon polyps; M17.10 Unilateral primary osteoarthritis, unspecified knee; K21.00 Gastro-esophageal reflux disease with esophagitis, without bleeding; K22.70 Barrett's esophagus without dysplasia; E78.5 Hyperlipidemia, unspecified; Z71.89 Other specified counseling; E55.9 Vitamin D deficiency, unspecified

== ENCOUNTER → 2024-06-24 08:48 | Outpatient (BNVA) | payer MEDICARE, OTHER, SELFPAY | PROVIDERS: PCP Internal Medicine; Visit Provider Internal Medicine | DX: Z00.00 Encounter for general adult medical examination without abnormal findings (principal); M17.10 Unilateral primary osteoarthritis, unspecified knee; K21.00 Gastro-esophageal reflux disease with esophagitis, without bleeding; K22.70 Barrett's esophagus without dysplasia; E78.5 Hyperlipidemia, unspecified; E55.9 Vitamin D deficiency, unspecified; Z71.89 Other specified counseling; Z86.0101 Personal history of adenomatous and serrated colon polyps | CPT/HCPCS: 96127 ==

== ENCOUNTER 2024-08-19 06:38 | Outpatient (REF) | payer MEDICARE, OTHER, SELFPAY ==
[2024-08-19 10:53] LABS: Vitamin D 25-OH Total 14.1 ng/mL (>30)
== END 2024-08-19 06:39 | disposition home or self-care (01) ==
LOC: HO.HMGCLDS 06:38
PROVIDERS: PCP Internal Medicine; Visit Provider Internal Medicine
DX: E55.9 Vitamin D deficiency, unspecified (principal)
CPT/HCPCS: 36415; 82306

== ENCOUNTER 2024-08-22 12:27 | Outpatient (REF) | payer MEDICARE, OTHER, SELFPAY ==
--- NOTE | ~2024-08-22 | MM_ITS ---
EXAMINATION: DXA BONE DENSITY AXIAL HISTORY: Z78.0 - Asymptomatic menopausal state TECHNIQUE: Linkedwith Dual energy absorptiometry (DEXA) of the lumbar spine, total left hip, and femoral neck was performed. COMPARISON: Comparison is made with the prior examination dated 01/07/2022. FINDINGS: The bone mineral density of the lumbar spine is 1.271, corresponding to a T-score of 0.8, and a Z-score of 2.4. This is indicative of normal bone mineral density. This represents a BMD change of 2.6% compared to the prior exam. This is statistically significant. The bone mineral density of the left total hip is 0.947, corresponding to a T-score of -0.5, and a Z-score of 1.6. This is indicative of normal bone mineral density. This represents a BMD change of -3.0% compared to the prior exam. This is not statistically significant. The bone mineral density of the left femoral neck is 0.973, corresponding to a T-score of -0.5, and a Z-score of 1.7. This is indicative of normal bone mineral density. This represents a BMD change of 2.1% compared to the prior exam. MM/XR DEXA axial skeleton IMPRESSION: Based on bone mineral density, and according to World Health Organization (WHO) criteria, the diagnosis is consistent with normal bone mineral density. All bone density values are in grams per centimeter squared (g/cm2). Statistically, 68% of repeat scans fall within 1 SD (+/- 0.010 g/cm2 for AP spine L1-L4) and 1 SD (+/- 0.012 g/cm2 for femur total) [employer]RAX is a trademark of the [employer] [place] [facility] Metabolic [employer] Disease, a World Health Organization (WHO) Collaborating Center. Electronically signed by: Farooq De Jesus MD 08/22/2024 03:07 PM EDT
--- NOTE | ~2024-08-22 | MM_ITS ---
EXAMINATION: MM SCREENING DIGITAL BREAST TOMOSYNTHESIS, BILATERAL CLINICAL INFORMATION: Screening. Asymptomatic. COMPARISON: Mammography: Comparison is made with available priors TECHNIQUE: Digital breast mammography with tomosynthesis is performed in both the craniocaudal and mediolateral oblique views along with computer-aided detection (CAD). FINDINGS: There are scattered areas of fibroglandular density (ACR BI-RADS breast composition Category b). There are no significant masses, abnormal calcifications, or other abnormalities. MM/MM tomosynthesis screening BI IMPRESSION: No mammographic evidence of malignancy. ASSESSMENT: BI-RADS BI-RADS 1 - Negative RECOMMENDATION: Routine annual mammography screening. 1 year F/U This examination should not preclude the clinical evaluation of a suspicious palpable abnormality. This patient's information was entered into a reminder system with a target due date for their next mammogram. Electronically signed by: Anne-Marie Lobato DO 08/26/2024 01:13 PM EDT
== END 2024-08-22 12:28 | disposition home or self-care (01) ==
LOC: HO.MAMMO 12:27
PROVIDERS: PCP Internal Medicine; Visit Provider Internal Medicine
DX: Z12.31 Encounter for screening mammogram for malignant neoplasm of breast (principal); Z13.820 Encounter for screening for osteoporosis; Z78.0 Asymptomatic menopausal state
CPT/HCPCS: 77063; 77067; 77080

== ENCOUNTER → 2024-08-22 13:00 | Outpatient (BNV) | payer MEDICARE, OTHER, SELFPAY | PROVIDERS: PCP Internal Medicine; Visit Provider Radiology Diagnostic Radiology | DX: Z12.31 Encounter for screening mammogram for malignant neoplasm of breast (principal) | CPT/HCPCS: 77063; 77067 ==

== ENCOUNTER 2025-01-02 07:38 | Outpatient (REF) | payer MEDICARE, OTHER, SELFPAY ==
[2025-01-02 10:11] LABS: Hematocrit 42.0 % (37.0-47.0); Hemoglobin 13.5 g/dl (12.0-16.0)
[2025-01-02 11:23] LABS: Alanine Aminotransferase 12 U/L (0-31); Anion Gap 13 (12-20); Aspartate Amino Transferase 19 U/L (5-31); Blood Urea Nitrogen 17 mg/dL (9-16); Calcium 9.4 mg/dL (8.4-10.2); Carbon Dioxide 26 mmol/L (22-29); Chloride 108 mmol/L (96-108); Cholesterol 163 mg/dL (<200); Estimated Glomerular Filt Rate > 60; HDL Cholesterol 40 mg/dL (>40); Potassium 4.5 mmol/L (3.3-5.1); Sodium 142 mmol/L (135-145); Triglycerides 150 mg/dL (<150)
== END 2025-01-02 07:39 | disposition home or self-care (01) ==
LOC: HO.HMGCLDS 07:38
PROVIDERS: PCP Internal Medicine; Visit Provider Internal Medicine
DX: Z00.00 Encounter for general adult medical examination without abnormal findings (principal); K21.00 Gastro-esophageal reflux disease with esophagitis, without bleeding; K22.70 Barrett's esophagus without dysplasia; D12.6 Benign neoplasm of colon, unspecified; M17.10 Unilateral primary osteoarthritis, unspecified knee; E78.5 Hyperlipidemia, unspecified; Z86.0101 Personal history of adenomatous and serrated colon polyps; Z71.89 Other specified counseling
CPT/HCPCS: 36415; 80048; 80061; 82306; 84450; 84460; 85014; 85018

== ENCOUNTER 2025-01-06 09:11 | Outpatient (AMB) | payer MEDICARE, OTHER, SELFPAY ==
--- NOTE | 2025-01-06 09:20 | MHC.PC.OV ---
Vital Signs 01/06/25 09:21 Height 5 ft 6 in Weight 161 lb BMI 26.0 BP 130/74 Blood Pressure Location Lt brachial Position Sitting Respiration 15 Pulse 85 Pulse Source Pulse Oximeter Temp 97.6 F Temp Source Oral Pulse Oximetry (%) 95 Oxygen Delivery Method Room Air Intake Visit Reasons: 6m folllow up Intake Note: Pt is here today for her 6mo. 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 Allergies No Known Allergies (No Known Allergies*) Allergy (Verified 01/06/25 09:45) Medication List - Last Reconciled 01/06/25 by Zaida Tate MD acetaminophen ER (Tylenol 8 Hour) 650 mg PO Q12H atorvastatin 10 mg PO DAILY cholecalciferol (vitamin D3) 50 mcg PO DAILY 90 days diclofenac sodium 1% 4 grams topical BID PRN pantoprazole 40 mg PO DAILY sertraline 100 mg PO BEDTIME Tobacco use date assessed: 01/06/25 Fall risk assessment: No Falls in past year Last assessed Fall Risk: 01/06/25 Dental Screening Dental Screen Date: 01/06/25 Did you have a dental visit in the last 12 months?: Yes Did you have a dental problem in the last 6 months where you did not have access to dental care?: No Was dental information given to patient?: Patient has dentist HPI 6m folllow up HPI Details The patient is an 84-year-old female with history of dyslipidemia, here today for follow-up. Latest fasting lipids showed triglycerides being borderline elevated and LDL cholesterol at a favorable level of 93 mg/dL. Total cholesterol is less than 200 mg/dL. Currently taking atorvastatin 10 mg She has been diagnosed with vitamin D deficiency, for which she is currently taking 2000 units daily, . R advised to increase the dosage to 4000 units daily for three months to improve her vitamin D levels. The patient has Zaldivar's esophagus and is on daily pantoprazole therapy. She is advised to follow up with her regulatory affairs manager for an upper endoscopy as part of her ongoing management. Her bone density is normal, with recent tests showing no signs of osteoporosis in the spine or left total hip. She underwent a mammogram concurrently, which was also normal. The patient has a history of depression, currently controlled with sertraline, sees her psychiatrist regularly PFSH Medical History Vitamin D deficiency History of adenomatous polyp of colon COVID-19 vaccine administered Menopause Tubular adenoma of colon Depression Osteoarthritis, knee Reflux esophagitis Zaldivar's esophagus Synovial cyst of popliteal space [[place]ado], right knee Dyslipidemia Surgical History History of esophagogastroduodenoscopy (EGD) Hx of varicose vein ligation Hx of blepharoplasty H/O exploratory laparotomy Hx of colonoscopy Family History Father Colon cancer Sister Colon cancer Social History Household Members: None Household Members Other:: Housing: Condominium Are you a primary rn critical care to a significant other at home: No Do you presently have visiting nurse or other home services: No Alcohol intake: current Alcohol intake frequency: a few times a week Alcohol type: wine Patient Tobacco Use Status: Former Tobacco user e-Cigarette/Vaping Use: Never Used Advance Directives Date on File: 12/24/20 Current occupational status: retired Cognitive needs: No Hearing needs: No Vision needs: Yes Questionnaire Thrive Questionnaire Date Thrive assessed: 12/20/22 BHAVNA-7 AMB Questionnaire BHAVNA-7 Date BHAVNA - 7 assessed: 12/20/22 Source: Developed by Drs. Farooq Santana, Judith Forrest, Otoniel Sahu and colleagues, with an educational maya from [email or web address]. Review of Systems Const Reports no additional complaints Eyes Details: Sees [facility] Denies dizziness, Denies nasal congestion and Denies nasal discharge Card Denies chest pain, Denies palpitations and Denies dyspnea Resp Denies dyspnea and Denies wheezing GI Denies abdominal pain, Denies melena, Denies hematochezia, Denies change in bowel habits, Denies nausea and Denies vomiting Reports no additional complaints Musc Reports stiffness Neuro Denies dizziness Psych Denies anxiety and Denies depression Endo Denies palpitations Benito/Lymph Reports no additional complaints Aller/Immun Denies wheezing Physical exam (Primary Care) Vital Signs: Last Vital Signs Temp 97.6 F 01/06/25 09:21 Pulse 85 01/06/25 09:21 Resp 15 01/06/25 09:21 BP 130/74 01/06/25 09:21 Pulse Ox 95 01/06/25 09:21 Oxygen Delivery Method Room Air 01/06/25 09:21 BMI result Body Mass Index 26.0 Tobacco/Smoking Status: Tobacco use Status Tobacco use date assessed 01/06/25 01/06/25 09:28 Patient Tobacco Use Status Former Tobacco user 01/06/25 09:25 e-Cigarette/Vaping Use Never Used 01/06/25 09:25 Thrive Assessment: Date of Thrive Assessment Date Thrive assessed 12/20/22 01/06/25 09:25 Const Other: Alert oriented x3, no acute distress noted ambulatory with normal gait HENMT Head: Yes normocephalic General nose exam: Normal external nose present Face and sinus: Yes face symmetric Mouth: Normal oral and palatal mucosa present and moist mucous membranes Eyes General: appearance normal, both eyes and all related structures Neck Other: Supple, no lymphadenopathy, thyroid gland nonpalpable Resp Effort & Inspection: normal respiratory effort and able to speak in complete sentences Auscultation: clear to auscultation bilaterally Cardio Other: S1-S2 present regular rate and rhythm GI Palpation (GI): Soft to palpation, nontender and no guarding Auscultation: normal bowel sounds Skin General skin exam: no rashes or lesions noted Neuro General: gait normal, tone normal, moves all extremities, Normal light touch and pain sensation and no focal motor deficits Extrem General: Yes full ROM, Yes no joint enlargement, Yes no clubbing, cyanosis or edema and Yes normal gait Psych Appearance: grossly normal and well kempt Mental Status: mental status grossly normal Speech and movement: Normal speech and movement present Affect: normal affect Results Reviewed Results Reviewed: Laboratory Tests Name: Danielle Carrero Age/Sex: 84/F : 1940 Unit#: [id number] Attend Dr: Zaida Tate MD Re01/02/25 Status: DEP REF [facility] [place] Disch: SPEC : [id number] RUÉBN: 01/02/2544 STATUS: COMP REQ : [id number] RECD: 01/02/25-[address]: Zaida Tate MD COMP: 01/02/251139 ENTERED: 01/02/25-0743 [facility] : ORDERED: Met Prof Fast, AST, ALT, Lipid Panel, Vitamin D 25-OH Test Result Flag Reference Sodium 142 135-145 mmol/L Potassium 4.5 3.3-5.1 mmol/L CL 108 96-108 mmol/L CO2 26 22-29 mmol/L Gap 13 12-20 BUN 17 H 9-16 mg/dL Creat 0.77 0.5-1.4 mg/dL eGFR > 60 Chronic Kidney Disease: Estimated GFR < 60 mL/min/1.73m2 Severe Kidney Disease: Estimated GFR < 15 mL/min/1.73m2 FBS 90 60-99 mg/dL CA 9.4 8.4-10.2 mg/dL AST (GOT) 19 5-31 U/L ALT (GPT) 12 0-31 U/L Triglyceride 150 H <150 mg/dL Desirable Triglyceride: less than 150 mg/dL Borderline High Triglyceride 150-199 mg/dL High Triglyceride: 200-499 mg/dL Very High Triglyceride: greater than or equal to 5OO mg/dL Cholesterol 163 <200 mg/dL Desirable Cholesterol: less than 200 mg/dL Borderline High Cholesterol: 200-239 mg/dL High Cholesterol: greater than 239 mg/dL LDL Calculated 93 <100 mg/dL Desirable LDL: less than 100 mg/dL Near Optimal/Above Optimal LDL: 110-129 mg/dL Borderline High LDL: 130-159 mg/dL High LDL: 160-189 mg/dL Very High LDL: greater than or equal to 190 mg/dL HDL 40 L >40 mg/dL Desirable HDL: greater than 40 mg/dL Note: This HDL assay may give artificially low results in patients with liver disease. Vitamin D 25-OH 22.2 L >30 ng/mL Health Based Reference Values* < 20 ng/mL Deficient 20-30 ng/mL Insufficient > 30 ng/mL Sufficient 42.0 Laboratory Tests 01/02/25 07:44 Hgb 13.5 Hct 42.0 Coding Level of Care Code Est Pt Level 4 (07506) Complex EM visit Add On G2211 Diagnoses Dyslipidemia E78.5 Zaldivar's esophagus without dysplasia K22.70 Zaldivar's esophagus type: without dysplasia Gastroesophageal reflux disease with esophagitis without hemorrhage K21.00 Esophagitis bleeding: without hemorrhage Vitamin D deficiency E55.9 Assessment & Plan Assessment & Plan (1) Dyslipidemia: Code(s): E78.5 - Hyperlipidemia, unspecified Category: Medical Plan: Recent fasting labs showed continued atorvastatin 10 mg (2) Zaldivar's esophagus: Comment: EGD-Zaldivar's -reinforced importance pantoprazole 40 mg daily She as well as taking famotidine at HS with very good response Will check with Shiraz if further EGD advised. Code(s): K22.70 - Zaldivar's esophagus without dysplasia Category: Medical Qualifiers: Zaldivar's esophagus type: without dysplasia Qualified Code(s): K22.70 - Zaldivar's esophagus without dysplasia Plan: Currently on pantoprazole 40 mg daily advised to follow-up with GI (3) Reflux esophagitis: Code(s): K21.00 - Gastro-esophageal reflux disease with esophagitis, without bleeding Category: Medical Qualifiers: Esophagitis bleeding: without hemorrhage Qualified Code(s): K21.00 - Gastro-esophageal reflux disease with esophagitis, without bleeding Plan: Currently on pantoprazole 40 mg daily (4) Vitamin D deficiency: Code(s): E55.9 - Vitamin D deficiency, unspecified Category: Medical Plan: Increase vitamin-D supplement 2000 units daily, recheck vitamin-D level again six-months Orders: Orders Alanine Aminotransferase 6 Months E55.9 - Vitamin D deficiency, unspecified, E78.5 - Hyperlipidemia, unspecified, K21.00 - Gastro-esophageal reflux disease with esophagitis, without bleeding, K22.70 - Zaldivar's esophagus without dysplasia Aspartate Amino Transferase 6 Months E55.9 - Vitamin D deficiency, unspecified, E78.5 - Hyperlipidemia, unspecified, K21.00 - Gastro-esophageal reflux disease with esophagitis, without bleeding, K22.70 - Zaldivar's esophagus without dysplasia Vitamin D 25-OH Total 6 Months E55.9 - Vitamin D deficiency, unspecified, E78.5 - Hyperlipidemia, unspecified, K21.00 - Gastro-esophageal reflux disease with esophagitis, without bleeding, K22.70 - Zaldivar's esophagus without dysplasia Lipid Panel 6 Months E55.9 - Vitamin D deficiency, unspecified, E78.5 - Hyperlipidemia, unspecified, K21.00 - Gastro-esophageal reflux disease with esophagitis, without bleeding, K22.70 - Zaldivar's esophagus without dysplasia Basic Metabolic Panel Fasting 6 Months E55.9 - Vitamin D deficiency, unspecified, E78.5 - Hyperlipidemia, unspecified, K21.00 - Gastro-esophageal reflux disease with esophagitis, without bleeding, K22.70 - Zaldivar's esophagus without dysplasia Medications: Refilled atorvastatin 10 mg PO DAILY 90 tabs 4RF
[2025-01-06 09:21] VITALS: BP 130/74; PULSE 85; RESP 15; TEMP 36.4; O2SAT 95; BMI 26.0
== END 2025-01-06 10:15 | disposition home or self-care (01) ==
LOC: HO.HMCC 09:11
PROVIDERS: PCP Internal Medicine; Visit Provider Internal Medicine
DX: E78.5 Hyperlipidemia, unspecified (principal); K22.70 Barrett's esophagus without dysplasia; K21.00 Gastro-esophageal reflux disease with esophagitis, without bleeding; E55.9 Vitamin D deficiency, unspecified

== ENCOUNTER → 2025-01-06 09:11 | Outpatient (BNVA) | payer MEDICARE, OTHER, SELFPAY | PROVIDERS: PCP Internal Medicine; Visit Provider Internal Medicine | DX: I10 Essential (primary) hypertension (principal); E55.9 Vitamin D deficiency, unspecified; K22.70 Barrett's esophagus without dysplasia; K21.00 Gastro-esophageal reflux disease with esophagitis, without bleeding | CPT/HCPCS: 99212 ==

== ENCOUNTER 2025-03-06 13:20 | Outpatient (AMB) | payer MEDICARE, OTHER, SELFPAY ==
[2025-03-06 13:23] VITALS: BP 132/70; PULSE 78; BMI 25.8
--- NOTE | 2025-03-06 13:23 | A.OFFVIS_ITS ---
Vital Signs 03/06/25 13:23 Height 5 ft 6 in Weight 160 lb BMI 25.8 BP 132/70 Blood Pressure Location Lt brachial Position Sitting Pulse 78 Intake Visit Reasons: f/u GERD (last seen with Kennedy 2022) Intake Note: Danielle presents in follow up of GERD. CC: Patient states that if she skips her Pantoprazole she has bad acid reflux after lunch. She also reports sometimes having constipation or diarrhea but she believes is mostly related to what she eats. Patient states that she believes she is due for colonoscopy and EGD. 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 She had been seen in the past by Harini Benavides. Her primary care provider is Zaida Tate. PMX High cholesterol GERD Barretts esophagus History of TA Generalized osteoarthritis Depression * SURGICAL HISTORY EGD-2022 us on Varicose vein ligation Blepharoplasty Exploratory laparotomy Colonoscopy-2016 her son * ALLERGIES: NKDA * [employer] LABS: Laboratory Tests 01/02/25 07:44 Estimated GFR > 60 AST 19 ALT 12 Received: 07/20/22 Diagnosis A. Esophagogastric junction, biopsy: Squamous mucosa with hyperplasia and focal intraepithelial eosinophils (up to 4 per high-power field) consistent with esophagitis, and columnar mucosa with mild chronic inactive inflammation; negative for intestinal metaplasia and dysplasia. B. Colon, transverse, polyp: Tubular adenoma; negative for high-grade dysplasia and carcinoma. C. Colon, 2 cecal polyps: Tubular adenomas, two; negative for high-grade dysplasia and carcinoma TODAY'S VISIT IT SEEMS IN THE PAST SHE WAS ON PANTOPRAZOLE 40 MG ONCE A DAY AND CITRUCEL. Cardiac or resp problems: Anesthesia or sed problesm: ID: [id number]: PFSH Medical History Vitamin D deficiency History of adenomatous polyp of colon COVID-19 vaccine administered Menopause Tubular adenoma of colon Depression Osteoarthritis, knee Reflux esophagitis Zaldivar's esophagus Synovial cyst of popliteal space [[place]achado], right knee Dyslipidemia Surgical History History of esophagogastroduodenoscopy (EGD) Hx of varicose vein ligation Hx of blepharoplasty H/O exploratory laparotomy Hx of colonoscopy Family History Father Colon cancer Sister Colon cancer Social History Household Members: None [facility] Members [facility] Are you a primary personal care aid to a significant other at home: No Do you presently have visiting nurse or other home services: No Alcohol intake: current Alcohol intake frequency: a few times a week Alcohol type: wine Patient Tobacco Use Status: Former Tobacco user e-Cigarette/Vaping Use: Never Used Advance Directives Date on File: 12/24/20 Current occupational status: retired Cognitive needs: No Hearing needs: No Vision needs: Yes Review of Systems Eyes Details: Glasses Card Denies no additional complaints Resp Denies no additional complaints GI Denies abdominal pain, Denies hematochezia and Denies change in bowel habits Physical Exam Vital Signs: Last Vital Signs Pulse 78 03/06/25 13:23 BP 132/70 03/06/25 13:23 BMI result Body Mass Index 25.8 Const General: cooperative and healthy appearing Nutritional Appearance: average body habitus Orientation/consciousness: oriented to person, oriented to place and oriented to time Limitations: no limitations Neuro General: oriented to person, oriented to place and oriented to time Psych Appearance: grossly normal and well kempt Mental Status: mental status grossly normal Speech and movement: Normal speech and movement present Affect: normal affect Attitude: cooperative Thought process: Normal thought process present Thought content: Normal thought content present Insight: Good insight present (Psych) Judgement: Good judgement present (Psych) Assessment & Plan Assessment & Plan (1) Zaldivar's esophagus: Comment: 2022 pathology shows regression of Barretts tissues so no further endoscopy needed unless there is an interruption of PPI therapy Code(s): K22.70 - Zaldivar's esophagus without dysplasia Category: Medical Qualifiers: Zaldivar's esophagus type: without dysplasia Qualified Code(s): K22.70 - Zaldivar's esophagus without dysplasia (2) Reflux esophagitis: Code(s): K21.00 - Gastro-esophageal reflux disease with esophagitis, without bleeding Category: Medical Qualifiers: Esophagitis bleeding: without hemorrhage Qualified Code(s): K21.00 - Gastro-esophageal reflux disease with esophagitis, without bleeding Plan Subjective Patient presents to discuss whether to pursue further gastrointestinal procedures, specifically surveillance colonoscopy. She is 85 and reports feeling generally well with good quality of life, stays active with volunteer work, and no longer drives at night. She denies history of breathing problems or heart attacks. She has a history of Zaldivar?s esophagus that, per prior endoscopy, resolved on pathology while on pantoprazole. Approximately three years ago (about 2022), she underwent colonoscopy with removal of three polyps characterized as typical precancerous adenomas. She recalls prior surveillance intervals of five years before the most recent exam. Family history notable for a sister who of colon cancer in her late 80s; another sister is living at 91. She follows with Dr. Tate every six months. She inquired about stool DNA testing (Cologuard); I explained it is generally not covered by insurance beyond age 80. She prefers to think about colonoscopy, discuss with her daughters, and avoid scheduling during the winter months. Objective - Prior EGD pathology demonstrated resolution of Zaldivar?s esophagus while on pantoprazole. - Prior colonoscopy approximately three years ago (2022) with removal of three precancerous adenomatous polyps. Assessment & Plan Colorectal cancer surveillance decision-making in an 85-year-old with prior adenomatous polyps: Reviewed that surveillance colonoscopy decisions at her age are individualized and based on overall health and estimated life expectancy (typical adenoma?carcinoma sequence averages ~10 years). No absolute age cutoff. Cologuard is generally not covered by insurance beyond age 80. She is clinically well and prefers to defer a decision until after the new year and discuss with family. - Patient will consider proceeding with colonoscopy versus deferring; she will contact our office if she elects to proceed. - If proceeding: arrange pre-procedure labs and schedule colonoscopy (current scheduling into May/early June, subject to change based on staffing/OR availability). - Continue routine care with PCP/specialists and monitor for any concerning GI symptoms (e.g., rectal bleeding, persistent change in bowel habits, unexplained weight loss); seek care promptly if these occur. History of Zaldivar?s esophagus, resolved on pathology: Prior pathology showed resolution while on proton pump inhibitor therapy; no current indication for repeat EGD in the absence of therapy interruption or new alarm features. - Continue pantoprazole as previously prescribed. - No repeat endoscopy planned at this time. - Return if new upper GI alarm symptoms develop. Coding Level of Care Code New Pt Level 3 (22845) Diagnoses Zaldivar's esophagus without dysplasia K22.70 Zaldivar's esophagus type: without dysplasia Gastroesophageal reflux disease with esophagitis without hemorrhage K21.00 Esophagitis bleeding: without hemorrhage
== END 2025-03-06 13:45 | disposition home or self-care (01) ==
LOC: HO.HGI 13:21
PROVIDERS: PCP Internal Medicine; Visit Provider Nurse Practitioner
DX: K22.70 Barrett's esophagus without dysplasia (principal); K21.00 Gastro-esophageal reflux disease with esophagitis, without bleeding
CPT/HCPCS: 99203

== ENCOUNTER → 2025-03-06 13:20 | Outpatient (BNVA) | payer MEDICARE, OTHER, SELFPAY | PROVIDERS: PCP Internal Medicine; Visit Provider Nurse Practitioner | DX: K22.70 Barrett's esophagus without dysplasia (principal); K21.00 Gastro-esophageal reflux disease with esophagitis, without bleeding; Z87.891 Personal history of nicotine dependence | CPT/HCPCS: 99202 ==